=== PATIENT | male | born 1955 | race Caucasian/White ===

== ENCOUNTER 2018-11-28 21:16 | Inpatient (IN) | payer BC ==
[2018-11-28] MEDS ORDERED: NS 0.9% 1000 ML** 2,000 ML IV ONE (21:35)
[2018-11-28 21:54] LABS: ABS Eosinophils 0.1 10^3/ul (0-0.6); ABS Lymphocytes 0.9 10^3/ul (1.0-4.8); ABS Monocytes 0.6 10^3/ul (0-0.8); ABS Neutrophils 5.6 10^3/ul (1.5-7.7); Eosinophil % 1.4 %; Hematocrit 45 % (42-52); Hemoglobin 14.8 g/dL (14.0-18.0); Mean Corpuscular HGB Conc 33 g/dL (31-36); Mean Corpuscular Hemoglobin 31 pg (27-31); Mean Corpuscular Volume 94 fL (80-94); Mean Platelet Volume 6.9 fL (7.4-10.4); Nucleated Red Blood Cells % 0.1; Platelet Count 228 10^3/uL (150-450); Red Blood Count 4.73 10^6 /uL (4.18-5.48); Red Cell Distribution Width 16 % (10-15); White Blood Count 7.3 10^3/uL (3.5-10.8)
--- NOTE | 2018-11-28 21:55 | ED ---
Head Injury - HPI Summary HPI Summary: Patient is a 63 year old M brought in by ambulance the [facility] with chief complaints of a lump on back of his head since a witnessed syncopal fall backwards on to his head earlier this evening. Patient rates the pain severity 0 /10, per triage. Symptoms aggravated by nothing. Symptoms alleviated by nothing. Patient reported to be working outside most of the day. Patient reports to not have eaten dinner and was drinking beer before syncope. Patient denies any symptoms prior to syncope. Patient denies dizziness, lightheadedness , headache, neck pain, arm pain, back pain, SOB. En route, patient was hypoxic and hypotensive per EMS. Patient state he took one dose of Eliquis this afternoon (11/28/18). Patient is a smoker. - History Of Current Complaint Chief Complaint: EDSyncope Stated Complaint: ETOH PER EMS Time Seen by Provider: 11/28/18 21:33 Hx Obtained From: Patient, Other: - Nurse and EMS Mechanism Of Injury: Other - witnessed syncopal fall backwards on to his head earlier this evening Onset/Duration: Started Hours Ago, Still Present Severity Currently: None Pain Intensity: 0 Pain Scale Used: 0-10 Numeric Aggravating Factor(s): Other: - Nothing Alleviating Factor(s): Other: - Nothing Associated Signs And Symptoms: Negative - dizziness, lightheadedness, headache, neck pain, arm pain, back pain, SOB Anticoagulant Therapy: Blood Thinners - Allergies/Home Medications Allergies/Adverse Reactions: Allergies Allergy/AdvReac Type Severity Reaction Status Date / Time No Known Allergies Allergy Verified 11/28/18 21:27 Home Medications: Home Medications Apixaban [Eliquis] 5 mg PO BID 11/28/18 [History Confirmed 11/28/18] Atorvastatin* [Lipitor*] 10 mg PO QPM 11/28/18 [History Confirmed 11/28/18] Carvedilol [Coreg] 25 mg PO DAILY 11/28/18 [History Confirmed 11/28/18] Lisinopril 5 mg PO DAILY 11/28/18 [History Confirmed 11/28/18] Potassium Chlor TAB* [Klor Con ER TAB*] 20 meq PO DAILY 11/28/18 [History Confirmed 11/28/18] Torsemide 5 mg PO DAILY 11/28/18 [History Confirmed 11/28/18] guaiFENesin [Mucinex] 600 mg PO DAILY 11/28/18 [History Confirmed 11/28/18] PMH/Surg Hx/FS Hx/Imm Hx Previously Healthy: No Cardiovascular History: Reports: Hx Congestive Heart Failure Respiratory History: Reports: Hx Chronic Obstructive Pulmonary Disease (COPD) Sensory History: Reports: Hx Contacts or Glasses Opthamlomology History: Reports: Hx Contacts or Glasses - Surgical History Surgery Procedure, Year, and Place: None reported Infectious Disease History: No Infectious Disease History: Denies: Traveled Outside the [place] in Last 30 Days - Family History Known Family History: Negative: Blood Disorder - Social History Alcohol Use: Daily Hx Substance Use: No Substance Use Type: Reports: None Hx Tobacco Use: Yes Smoking Status (MU): Heavy Every Day Tobacco Smoker Review of Systems Negative: Shortness Of Breath Musculoskeletal: Negative - neck pain, arm pain, back pain Positive: Other - lump on back of his head Neurological: Negative - dizziness, lightheadedness Positive: Syncope. Negative: Headache All Other Systems Reviewed And Are Negative: Yes Physical Exam - Summary Physical Exam Summary: Appearance: Nontoxic appearance, elder male, awake, alert, no acute distress Skin: Warm, dry, no obvious rash Eyes: sclera anicteric, no conjunctival pallor ENT: mucous membranes moist Neck: Supple, nontender Respiratory: No signs of respiratory distress Cardiovascular: Appears well perfused, pulses are nml Abdomen: Soft, nontender, normal active bowel sounds present Musculoskeletal: Moving all 4 extremities without obvious discomfort Neurological: Awake and alert, mentation is normal, speech is fluent and appropriate Psychiatric: intoxicated, able to answer questions, competent to make decisions Vitals: hypotension, normal HR GCS: 15 Triage Information Reviewed: Yes Vital Signs On Initial Exam: Initial Vitals Temp Pulse Resp BP Pulse Ox 97.1 F 85 16 87/61 72 11/28/18 21:23 11/28/18 21:23 11/28/18 21:23 11/28/18 21:23 11/28/18 21:23 Vital Signs Reviewed: Yes Diagnostics - Vital Signs Vital Signs Temp Pulse Resp BP Pulse Ox 11/28/18 21:23 97.1 F 85 16 87/61 72 - Laboratory Result Diagrams: 11/29/18 05:17 11/29/18 05:17 Lab Statement: Any lab studies that have been ordered have been reviewed, and results considered in the medical decision making process. - CT Brain CT Interpretation Completed By: Radiologist Summary of CT Findings: 1. Mild small vessel ischemic changes. 2. No acute intracranial abnormality. 3. Mild right parietal soft tissue swelling. ED physician has reviewed this report. Chest/Thorax CTA CT Interpretation Completed By: Radiologist Summary of CT Findings: Per radiologist,. No evidence of pulmonary embolism, aneurysm, or dissection. No acute findings. Bilateral adrenal nodules. Further workup is recommended. ED physician has reviewed this report. - EKG 1943 Summary of EKG Findings: NSR 84, non-specific ST-T changes 2140 Cardiac Rate: NL - 84 BPM EKG Rhythm: Sinus Rhythm Summary of EKG Findings: NSR 84, non-specific ST-T changes - Additional Comments Diagnostic Additional Comments: Chest CTA, per radiologist: No evidence of pulmonary embolism, aneurysm, or dissection. No acute findings. Bilateral adrenal nodules. Further workup is recommended. ED physician has reviewed this report. Head Injury Course/Dx Course Of Treatment: Patient is a 63 year old M brought in by ambulance the [facility] with chief complaints of a lump on back of his head since a witnessed syncopal fall backwards on to his head earlier this evening. Patient denies dizziness, lightheadedness, headache, neck pain, arm pain, back pain, SOB. En route, patient was hypoxic and hypotensive per EMS. Physical exam reveals a nontoxic appearance, elder male, awake, alert, no acute distress, intoxicated, able to answer questions, competent to make decisions, hypotension, normal HR, and a GCS of 15. Test results with no significant abnormalities except for RDW 16, MPV 6.9, Absolute Lymphs 0.9, Sodium 134, Chloride 98, Glucose 134, Calcium 8.1, Total Protein 5.7, and Serum Alcohol 171. In the ED course the patient was given Iohexol 77 ml and sodium chloride 1000 mls/hr. Chest/Thorax CTA reveals, per radiologist, no evidence of pulmonary embolism, aneurysm, or dissection, no acute findings, and bilateral adrenal nodules. Brain CT reveals, per radiologist , mild small vessel ischemic changes, no acute intracranial abnormality, and mild right parietal soft tissue swelling. EKG reveals NSR 84 and non-specific ST -T changes. We discussed patient care with Dr. Anton, hospitalist, who agrees to admit patient. Patient will be admitted to the hospitalist. The patient is agreeable with this plan. - Diagnoses Provider Diagnoses: Hypotension, Hypoxemia, Alcohol intoxication - Physician Notifications Discussed Care Of Patient With: Manuel Anton Time Discussed With Above Provider: 00:35 Instructed by Provider To: Other - Dr. Anton, hospitalist, agrees to admit patient. Discharge - Sign-Out/Discharge Documenting (check all that apply): Patient Departure - admit Patient Received Moderate/Deep Sedation with Procedure: No - Discharge Plan Condition: Guarded Disposition: ADMITTED TO [facility] - Billing Disposition and Condition Condition: GUARDED Disposition: Admitted to [facility] - Attestation Statements Document Initiated by Jeannie: Yes Documenting Scribe: Liz Alicia Provider For Whom Jeannie is Documenting (Include Credential): Kamaljit Abbasi MD Scribe Attestation: Joanne Santoro Alison Kim, scribed for Kamaljit Abbasi MD on 11/30/18 at 0433. Scribe Documentation Reviewed: Yes Provider Attestation: The documentation as recorded by the Joanne lizama Alison Kim accurately reflects the service I personally performed and the decisions made by Kamaljit bonilla MD Status of Scribricardo Document: Viewed
[2018-11-28 22:11] LABS: Albumin 3.4 g/dL (3.2-5.2); Albumin/Globulin Ratio 1.5 (1-3); Calcium 8.1 mg/dL (8.6-10.3); EGFR African American 108.3 (>60); EGFR Non-African American 89.5 (>60); Globulin 2.3 g/dL (2-4); Potassium 4.5 mmol/L (3.5-5.0); Total Bilirubin 0.4 mg/dL (0.2-1.0); Total Protein 5.7 g/dL (6.4-8.9)
[2018-11-28 22:13] LABS: Troponin I 0.01 ng/mL (<0.04)
[2018-11-28] MEDS ORDERED: Iohexol 350* (CONTRAST) 500 ML MDV IV ONE (22:13)
[2018-11-28 22:58] LABS: TSH (Thyroid Stimulating Horm) 4.42 mcIU/mL (0.34-5.60)
[2018-11-29] MEDS ORDERED: Albuterol 2.5 MG/3 ML NEB.SOL* (0.083%) INH PRN (01:59)
[2018-11-29] MEDS ORDERED: Azithromycin 500 mg/250 ml NS 500 MG/250 ML BAG IVPB SCH (02:00)
[2018-11-29] MEDS: methylPREDNISolone 125 MG* 2 ML VIAL IV SCH ×2 (03:14→16:07)
[2018-11-29] MEDS: Azithromycin 500 mg/250 mL NS IVPB SCH (03:20)
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
[2018-11-29 05:39] LABS: ABS Lymphocytes 0.3 10^3/ul (1.0-4.8); ABS Monocytes 0.3 10^3/ul (0-0.8); ABS Neutrophils 8.3 10^3/ul (1.5-7.7); Eosinophil % 0.2 %; Hematocrit 47 % (42-52); Hemoglobin 15.2 g/dL (14.0-18.0); Lymphocyte % 3.9 %; Mean Corpuscular HGB Conc 32 g/dL (31-36); Mean Corpuscular Hemoglobin 30 pg (27-31); Mean Corpuscular Volume 94 fL (80-94); Mean Platelet Volume 7.1 fL (7.4-10.4); Nucleated Red Blood Cells % 0.1; Platelet Count 224 10^3/uL (150-450); Red Blood Count 5.05 10^6 /uL (4.18-5.48); Red Cell Distribution Width 15 % (10-15); White Blood Count 8.9 10^3/uL (3.5-10.8)
[2018-11-29 05:57] LABS: BUN/Creatinine Ratio 17.2 (8-20); Calcium 8.1 mg/dL (8.6-10.3); EGFR African American 152.3 (>60); EGFR Non-African American 125.9 (>60)
[2018-11-29 05:59] LABS: Troponin I 0.02 ng/mL (<0.04)
[2018-11-29 06:08] LABS: Potassium 5.4 mmol/L (3.5-5.0)
[2018-11-29] MEDS ORDERED: Patiromer POWDER* 8.4 GM PAK PO ONE (07:58)
[2018-11-29] MEDS: Apixaban* 5 MG TAB PO SCH ×2 (08:30→21:00)
[2018-11-29] MEDS: Carvedilol TAB* 25 MG PO SCH ×2 (08:30→21:00)
[2018-11-29] MEDS ORDERED: Potassium Chlor TAB* 20 MEQ TAB.ER PO SCH (09:00)
[2018-11-29] MEDS ORDERED: Perflutren Lipid Microsphere* 3 ML VIAL ONE (10:30)
--- NOTE | 2018-11-29 14:11 | PN ---
Subjective Date of Service: 11/29/18 Interval History: Mr. White is feeling fine today. He offered no complaints this morning. States he remembers the events from yesterday, but is unable to actually describe anything to me. He denies CP, SOB, N/V. Family at bedside and very concerned. Reports that he has an appointment to see a trailer rental clerk in January, but this is delaying his AICD implant. No concerns from nursing. Family History: Unchanged from Admission Social History: Unchanged from Admission Past Medical History: Unchanged from Admission Objective Active Medications: Albuterol (Ventolin 2.5 Mg/3 Ml Neb.Zahraa*) 2.5 mg INH [id number] AWAKE PRN SOB/ WHEEZING Apixaban (Eliquis*) 5 mg PO BID CHRISTIANO Atorvastatin Calcium (Lipitor*) 10 mg PO QPM CHRISTIANO Carvedilol (Coreg Tab*) 25 mg PO BID CHRISTIANO Azithromycin (Zithromax 500 Mg/250 Ml) 500 mg in 250 mls @ 250 mls/hr IVPB Q24H CHRISTIANO Methylprednisolone Sodium Succinate (Solu-Medrol 125mg *) 60 mg IV Q12H CHRISTIANO Potassium Chloride (Klor Con Er Tab*) 20 meq PO DAILY CHRISTIANO Vital Signs - 8 hr 11/29/18 11/29/18 11/29/18 06:15 06:30 06:45 Temperature Pulse Rate 80 81 79 Respiratory 21 20 20 Rate Blood Pressure 114/62 117/70 109/72 (mmHg) O2 Sat by Pulse 98 99 97 Oximetry 11/29/18 11/29/18 11/29/18 07:00 07:15 07:30 Temperature Pulse Rate 82 84 81 Respiratory 30 25 16 Rate Blood Pressure 122/79 132/88 136/85 (mmHg) O2 Sat by Pulse 96 96 96 Oximetry 11/29/18 11/29/18 11/29/18 07:45 08:00 08:01 Temperature 97.3 F Pulse Rate 83 77 80 Respiratory 21 17 23 Rate Blood Pressure 130/85 131/82 (mmHg) O2 Sat by Pulse 97 98 96 Oximetry 11/29/18 11/29/18 11/29/18 08:09 08:15 08:30 Temperature Pulse Rate 79 81 Respiratory 24 12 Rate Blood Pressure 130/82 125/82 (mmHg) O2 Sat by Pulse 98 98 98 Oximetry 11/29/18 11/29/18 11/29/18 09:00 09:30 10:00 Temperature Pulse Rate 84 76 79 Respiratory 22 21 18 Rate Blood Pressure 144/90 120/71 127/80 (mmHg) O2 Sat by Pulse 94 95 94 Oximetry 11/29/18 11/29/18 11/29/18 10:30 11:00 11:34 Temperature 97.2 F Pulse Rate 82 84 Respiratory 18 20 Rate Blood Pressure 124/98 126/91 (mmHg) O2 Sat by Pulse 91 90 Oximetry 11/29/18 11:51 Temperature 97.9 F Pulse Rate 83 Respiratory 20 Rate Blood Pressure 150/91 (mmHg) O2 Sat by Pulse 94 Oximetry Oxygen Devices in Use Now: High Flow Nasal Cannula - 10L Appearance: Middle-aged male sitting in chair in NAD Eyes: No Scleral Icterus Ears/Nose/Mouth/Throat: Mucous Membranes Moist Neck: NL Appearance and Movements; NL JVP, Trachea Midline Respiratory: Symmetrical Chest Expansion and Respiratory Effort, Clear to Auscultation Cardiovascular: NL Sounds; No Murmurs; No JVD, RRR Abdominal: NL Sounds; No Tenderness; No Distention Extremities: - - +1 pitting BLE Neurological: Alert and Oriented x 3 Lines/Tubes/Other Access: Clean, Dry and Intact Peripheral IV Nutrition: Taking PO's Result Diagrams: 11/29/18 05:17 11/29/18 05:17 Assess/Plan/Problems-Billing Assessment: Mr. White is a 63 yo M with PMH of cardiomyopathy (tachycardia-induced?), pAF, HLD, alcohol abuse, and likely COPD; who presented to the ED with c/o syncope and was found to be hypoxic in the 70s requiring Vapotherm. - Patient Problems (1) Hypoxia Code(s): R09.02 - HYPOXEMIA Comment: - Requiring Vapotherm on admission, now on high flow NC - Differentials include: COPD, asthma, interstitial lung disease - Likely does have COPD, but has not been seen by a trailer rental clerk in the past; has an appointment scheduled to establish care in January - CTA unremarkable for PE - Appreciate Pulm consult - Continue azithromycin, prednisone, albuterol (2) Syncope Code(s): R55 - SYNCOPE AND COLLAPSE Comment: - Suspect secondary to hypoxia (3) Cardiomyopathy Code(s): I42.9 - CARDIOMYOPATHY, UNSPECIFIED Comment: - Etiology unclear, but possibly tachycardia-induced - Previous EF reported at 20% and there was consideration for an AICD by primary weed controller - Echo shows EF 55-60%, no wall motion abnormalities - Continue carvedilol; resume lisinopril and torsemide (4) Alcohol abuse Code(s): F10.10 - ALCOHOL ABUSE, UNCOMPLICATED Comment: - Social work consult placed - WA protocol with lorazepam - Start thiamine, folic acid, multivitamin (5) Paroxysmal atrial fibrillation Code(s): I48.0 - PAROXYSMAL ATRIAL FIBRILLATION Comment: - EKG shows NSR, rate controlled - Continue carvedilol, Eliquis (6) Hyperlipidemia Code(s): E78.5 - HYPERLIPIDEMIA, UNSPECIFIED Comment: - Continue atorvastatin (7) DVT prophylaxis Code(s): Z29.9 - ENCOUNTER FOR PROPHYLACTIC MEASURES, UNSPECIFIED Comment: - Eliquis (8) Full code status Code(s): Z78.9 - OTHER SPECIFIED HEALTH STATUS Comment: Status and Disposition: Inpatient. Anticipate d/c home when medically stable. Attending: Desirae Santos
--- NOTE | 2018-11-29 14:48 | ECHO ---
*[facility]* [place] [address] Fax #: [phone] Transthoracic Echocardiogram Patient: Lexx White : 1955 Study Date: 11/29/2018 Age: 63 Gender: M HR: 80 bpm Height: 69 in /175.3 cm BSA: 2.07 m^2 Weight: 199.6 lb /90.7 kg BMI: 29.5 kg/m^2 *Mechanotherapist: * Ricarda Petit [facility] *Referring Physician: * Manuel Anton *Reading Physician: * Re Scott MD Indications: Cardiomyopathy. History: Atrial fibrillation. PMH: Cardiomyopathy. Risk factors: ETOH. Dyslipidemia. Conclusions Summary: 1. Left ventricle: The cavity size is mildly reduced. Wall thickness is mildly increased. Systolic function is normal. The estimated ejection fraction is 55-60%. 2. Right ventricle: The cavity size is moderately dilated. Systolic function is moderately to severely reduced. 3. Tricuspid valve: There is mild regurgitation. 4. Pulmonary arteries: Systolic pressure is moderately to severely increased. The peak pressure during systole by Doppler is 53.0 mm Hg. 5. No prior echocardiogram to compare. Study data: Transthoracic echocardiogram. Procedure: Transthoracic echocardiography was performed. Image quality was suboptimal. The study was technically limited due to poor acoustic window availability. Intravenous Definity , 3 mlswas administered. Complete 2D, spectral Doppler, and color flow Doppler. Location: ICU Patient status: Inpatient. Patient room number: 9. Rhythm: Normal sinus rhythm. Findings Left ventricle: The cavity size is mildly reduced. Wall thickness is mildly increased. Systolic function is normal. The estimated ejection fraction is 55-60%. Wall motion is normal; there are no regional wall motion abnormalities. Doppler parameters are consistent with abnormal left ventricular relaxation (grade 1 diastolic dysfunction). Right ventricle: The cavity size is moderately dilated. Systolic function is moderately to severely reduced. Systolic pressure is moderately to severely increased. Ventricular septum: There is septal flattening of the interventricular septum consistent with RV volume or pressure overload. Left atrium: The atrium is normal in size. Right atrium: The atrium is moderately dilated. Mitral valve: The annulus is mildly calcified. The leaflets are normal thickness. There is no evidence of stenosis. There is no significant regurgitation. Aortic valve: Not well visualized. There is no evidence of thickening. There is no evidence of stenosis. There is no significant regurgitation. Tricuspid valve: The leaflets are normal thickness. There is no evidence of stenosis. There is mild regurgitation. Pulmonic valve: Not well visualized. There is no significant regurgitation. Aorta: Aortic root: The aortic root is appears normal. Ascending aorta: The ascending aorta is poorly visualized. Aortic arch: The aortic arch is poorly visualized. Pulmonary arteries: Not well visualized. Systolic pressure is moderately to severely increased. Systemic veins: Inferior vena cava: The vessel is dilated. The respirophasic diameter changes are blunted (< 50%). Measurements Left ventricle Value Ref Right atrium Value Ref RUBY, LAX (L) 3.1 cm 4.2 - 5.8 SI dim, ES (H) 5.8 cm 3.4 - 5.3 ESD, LAX 2.5 cm 2.5 - 4.0 ML dim, ES, A4C (H) 4.5 cm 2.6 - 4.4 FS, LAX (L) 20 % 25 - 43 Estimated RAP 15 mm Hg --------- PW, ED, LAX (H) 1.1 cm 0.6 - 1.0 EF (L) 42 % 52 - 72 Aortic valve Value Ref E', lat mayelin, TDI (L) 8.8 cm/sec >=10.0 Mayelin diam, ED 2.0 cm --- ------ E/e', lat mayelin, 7 Peak v, S 1.13 m/sec ------ --- TDI VTI, S 19.5 cm --------- E', med mayelin, TDI (L) 5.8 cm/sec >=7.0 Mean grad, S 2.0 mm Hg --- ------ E/e', med mayelin, 11 Peak grad, S 5.0 mm Hg ------ --- TDI E', avg, TDI 7.3 cm/sec Mitral valve Value Ref E/e', avg, TDI 9 <=14 Peak E 0.65 m/sec --- ------ Peak A 0.85 m/sec --------- LVOT Value Ref Decel time 92 ms --------- Peak fe, S 0.75 m/sec Peak E/A ratio 0.8 --------- Mean grad, S 1 mm Hg Tricuspid valve Value Ref Ventricular septum Value Ref TR peak v (H) 3.1 m/sec <=2.8 IVS, ED (H) 1.2 cm 0.6 - 1.0 Peak RV-RA grad, S 38 mm Hg --------- Right ventricle Value Ref Aortic root Value Ref RUBY, LAX 4.5 cm Root diam 3.2 cm <4.2 RUBY minor ax, A4C (H) 4.2 cm 1.9 - 3.5 mid Pulmonary artery Value Ref Pressure, S 53 mm Hg Pressure, S 53.0 mm Hg --------- Left atrium Value Ref Inferior vena cava Value Ref AP dim, ES 3.70 cm 3.00 - Diam 3.3 cm --------- 4.00 ML dim, A4C 3.4 cm SI dim, A4C 5.2 cm Vol/bsa, ES, 1-p 18 ml/m^2 12 - 37 A4C Legend: (L) and (H) yarelis values outside specified reference range. Prepared and electronically signed by Re Scott MD 11/29/2018 14:47
[2018-11-29] MEDS ORDERED: LORazepam TAB(*) 1 MG PO SCH (15:00)
--- NOTE | 2018-11-29 17:38 | CONS ---
PULMONARY CONSULTATION REPORT: DATE OF CONSULT: 11/29/18 CONSULTATION REQUESTED BY: Judy Ballard NP. REASON FOR CONSULT: Evaluation of hypoxemic respiratory failure. 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 The patient has not been seeing a physician for many years until recently when he had skin cancer and was found to be in atrial fibrillation. The patient subsequently was found to have cardiomyopathy with severe systolic CHF and low ejection fraction and was awaiting placement of AICD. Given his significant smoking history, he was to have pulmonology consultation, which was pending. He came in after a syncopal episode. The patient was having a few drinks at a restaurant, was crossing the road, fell, had lost consciousness. The patient is a poor historian, not able to provide much information. The patient's daughter and other family members at bedside were providing most of the information. The patient is being watched for alcohol withdrawal. He has a history of significant alcohol intake and his levels were elevated on admission. The patient was also noted to be significantly hypoxemic requiring O2 supplementation at 5 L per minute. The patient has been alert and oriented. He has complained of shortness of breath with minimal exertion that is progressively getting worse recently. The patient also reports cough productive of clear phlegm. The patient denies history of recurrent bronchitis. The patient also reports history of snoring, gasping arousals, disruptive sleep, and daytime fatigue. He had cardiac catheterization in July 2018, which was negative for obstructive coronary disease. He also was noted to have dilated cardiomyopathy and was presumed to be at risk for ventricular tachycardia and AICD was planned at that point. He was never formally diagnosed with COPD. He has never been on any inhalers. He has been on cardiac medications that were started recently. The patient reports smoking a pack or more per day, recently trying to cut down to half a pack and is interested in quitting smoking. He has received Chantix; however, has not started using it. PAST MEDICAL HISTORY: 1. Cardiomyopathy. 2. Tachycardia-induced cardiomyopathy. 3. Paroxysmal atrial fibrillation. 4. Dyslipidemia. 5. EtOH abuse. 6. Significant tobacco usage. PAST SURGICAL HISTORY: Skin cancer resection. MEDICATIONS: 1. Potassium chloride. 2. Mucinex. 3. Torsemide. 4. Coreg. 5. Lisinopril. 6. Eliquis. 7. Lipitor. ALLERGIES: No known drug allergies. FAMILY HISTORY: Father of lung disease at age 35, possibly lung cancer or asbestosis. Mother of heart disease at older age and peripheral vascular disease. Sister has thyroid nodules, noncancerous. 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 Has been smoking half a pack recently, was smoking about a pack or more in the past. Drinks alcohol about 3 drinks per day. No drug abuse. REVIEW OF SYSTEMS: Denies fevers, chills, night sweats, loss of weight or appetite. Denies chest pain or palpitations. Has lower extremity swelling. All other review of systems were negative. PHYSICAL EXAM: The patient is in bed, in no apparent distress, appears to be with periods of confusion. Vital Signs: Temperature 97.8, pulse 83 beats per minute, respiratory rate 20 per minute, O2 sat 97% on 5 L, blood pressure 129/ 78. HEENT: Pupils equal, reactive to light. Mucous membranes moist. Lungs: Diminished air entry bilaterally. No wheeze. Cardiovascular: S1, S2 present. Regular. Abdomen: Soft, nontender, nondistended. Bowel sounds present. Extremities: Normal range of motion. Edema present. Neuro: Alert, awake, oriented x3. DIAGNOSTIC STUDIES/LAB DATA: WBC count 8.9, hemoglobin 15.2, hematocrit 47, platelet count 224. Sodium 133, potassium 5.4, chloride 99, bicarb 30, BUN 11, creatinine 0.64. Troponins x3 negative. Alcohol level 171 on admission. CTA on admission was personally reviewed by me - evidence of mild prominence of interstitium and mild bronchiectasis at bases with evidence of mild hyperinflation. No emphysematous bullae noted. Echocardiogram showed evidence of enlarged right ventricle with evidence of moderate pulmonary hypertension. IMPRESSION AND RECOMMENDATIONS: 63-year-old male with significant smoking history, admitted with syncopal episode. The patient with evidence of hypoxemia. The patient with dilated pulmonary artery on CT scan, also with evidence of pulmonary hypertension. He has lower extremity edema concerning for cor pulmonale. Suspect he has undiagnosed chronic obstructive pulmonary disease that has not been treated and resulted in chronic hypoxemia. He also appeared to be at risk for obstructive sleep apnea. He might have had chronic pulmonary hypertension and chronic hypoxemia resulting in cor pulmonale. Hypoxemia secondary to underlying pulmonary disease. The patient is currently on nebulizers, also was started on azithromycin empirically. Would recommend long acting bronchodilators upon discharge. The patient is also on Solu-Medrol, can start tapering as he does not have significant wheezing on auscultation. He is on cardiac medications including beta-kwabena. He is also on torsemide to help with lower extremity swelling. The patient is currently requiring 5 L O2. Will recommend obtaining blood gas in the screen roller to evaluate for chronic hypercapnia. The patient will probably need oxygen upon discharge. Out of bed to chair and ambulate as tolerated. Incentive spirometer encouraged. Thank you for allowing me to participate in the care of your patient. Will follow up with you. [id number]/CPS #: [id number] ABE
[2018-11-29] MEDS: Atorvastatin* 10 MG TAB PO SCH (17:42)
[2018-11-29 19:34] LABS: Urine Appearance Clear; Urine Bacteria 1+ (Absent); Urine Bilirubin Negative (Negative); Urine Blood Negative (Negative); Urine Color Yellow; Urine Glucose Negative (Negative); Urine Ketones Negative (Negative); Urine Nitrite Positive (Negative); Urine Protein Negative (Negative); Urine Red Blood Cell 2+(6-10/hpf) (Absent); Urine Specific Gravity 1.014 (1.010-1.030); Urine Squamous Epithelial Cell Present (Absent); Urine Urobilinogen Negative (Negative); Urine White Blood Cell 3+(>20/hpf) (Absent)
[2018-11-30] MEDS: methylPREDNISolone 125 MG* 2 ML VIAL IV SCH ×2 (03:56→15:32)
[2018-11-30] MEDS: Azithromycin 500 mg/250 mL NS IVPB SCH (03:56)
[2018-11-30 06:12] LABS: BUN/Creatinine Ratio 20.6 (8-20); Blood Urea Nitrogen 13 mg/dL (6-24); CO2 Carbon Dioxide 40 mmol/L (22-32); Chloride 95 mmol/L (101-111); EGFR African American 155.1 (>60); EGFR Non-African American 128.2 (>60); Glucose 175 mg/dL (70-100); Magnesium 1.6 mg/dL (1.9-2.7); Sodium 135 mmol/L (135-145)
[2018-11-30 06:13] LABS: Potassium 5.3 mmol/L (3.5-5.0)
[2018-11-30] MEDS: Thiamine TAB* 100 MG TAB PO SCH (08:52)
[2018-11-30] MEDS: Multivitamins/Minerals TAB PO SCH (08:52)
[2018-11-30] MEDS: Torsemide TAB 10 MG PO SCH (08:52)
[2018-11-30] MEDS: Folic Acid TAB* 1 MG PO SCH (08:52)
[2018-11-30] MEDS: Apixaban* 5 MG TAB PO SCH ×2 (08:52→22:02)
[2018-11-30] MEDS: Carvedilol TAB* 25 MG PO SCH ×2 (08:52→22:02)
[2018-11-30] MEDS ORDERED: Lisinopril TAB* 5 MG PO SCH (09:00)
[2018-11-30] MEDS ORDERED: Spiriva Inhaler DEVICE* 1 EACH DEVICE INH SCH (14:00)
[2018-11-30] MEDS: Tiotropium CAP.INH* CAP.INH/18 MCG (USE ORDER SET !) INH SCH (14:10)
--- NOTE | 2018-11-30 16:20 | PN ---
Progress Note - Progress Note Date of Service: 11/30/18 - Pulm f/u note Note: Pt seen and examined at bedside. Pt was transferred to ICU for BiPAP given acute hypercapnic resp failure and AMS. Pt appeared comfortable on BiPAP. Pt reprots improvement in mental status. SOB is improved, no cough Active Medications Generic Name Dose Route Start Last Admin Trade Name Freq PRN Reason Stop Dose Admin Albuterol 2.5 mg 11/29/18 01:59 Ventolin 2.5 Mg/3 Ml Neb.Zahraa* INH [id number] AWAKE PRN SOB/WHEEZING Apixaban 5 mg 11/29/18 09:00 11/30/18 08:52 Eliquis* PO 5 mg BID [facility] Administration Atorvastatin Calcium 10 mg 11/29/18 18:00 11/29/18 17:42 Lipitor* PO 10 mg QPM [facility] Administration Carvedilol 25 mg 11/29/18 09:00 11/30/18 08:52 Coreg Tab* PO 25 mg BID [facility]O Administration Device 1 each 11/30/18 14:00 Tiotropium Inhaler Device* INH .USE w/ SPIRIVA CAPS [facility] Folic Acid 1 mg 11/30/18 09:00 11/30/18 08:52 Folvite Tab* PO 1 mg DAILY [facility] Administration Azithromycin 500 mg in 250 mls @ 250 mls/hr 11/29/18 03:30 11/30/18 03:56 Zithromax 500 Mg/250 Ml IVPB 250 mls/hr Q24H [facility] Administration Lisinopril 5 mg 11/30/18 09:00 11/30/18 08:52 Prinivil Tab* PO 5 mg DAILY [facility] Administration Lorazepam 0 - 6 mg 11/29/18 15:00 Ativan Tab(*) PO .PER [facility] PROTOCOL [facility] Protocol Methylprednisolone Sodium Succinate 40 mg 11/30/18 14:00 11/30/18 15:32 Solu-Medrol 125mg * IV 40 mg Q24H [facility] Administration Mometasone Furoate/Formoterol Fumar 2 puff 11/30/18 21:00 Dulera 200/5 Mdi* INH BID [facility] Multivitamins/Minerals 1 tab 11/30/18 09:00 11/30/18 08:52 Theragran/Minerals Tab* PO 1 tab DAILY [facility] Administration Thiamine HCl 100 mg 11/30/18 09:00 11/30/18 08:52 Vitamin B-1 Tab* PO 100 mg DAILY [facility] Administration Tiotropium [place] 1 cap 11/30/18 14:00 11/30/18 14:10 Spiriva Cap.Inh* INH Not Given DAILY [facility]O Torsemide 5 mg 11/30/18 09:00 11/30/18 08:52 Torsemide PO 5 mg DAILY [facility] Administration Vital Signs Temp Pulse Resp BP Pulse Ox 97.0 F 108 18 91/52 94 11/30/18 11:47 11/30/18 11:48 11/30/18 11:48 11/30/18 11:47 11/30/18 11:48 Laboratory Results - last 24 hr 11/29/18 11/30/18 11/30/18 19:17 01:07 05:39 Patient Temperature Not Reportable ABG pH ABG pH (Temp Correct) ABG pCO2 ABG pCO2 (Temp Corrct ABG pO2 ABG pO2 (Temp Correct ABG HCO3 ABG O2 Saturation ABG Base Excess Respiration Rate Not Reportable O2 Delivery Device Ventilator Type Not Reportable Vent Mode Not Reportable FiO2 Inspiratory Time Not Reportable PEEP Not Reportable Pressure Support Not Reportable Pressure Control Not Reportable EPAP IPAP BiPAP Not Reportable Sodium 135 Potassium 5.3 H Chloride 95 L Carbon Dioxide 40 H Anion Gap Not Reportable BUN 13 Creatinine 0.63 L Est GFR ( Amer) 155.1 Est GFR (Non-Af Amer) 128.2 BUN/Creatinine Ratio 20.6 H Glucose 175 H Calcium 9.0 Magnesium 1.6 L Urine Color Yellow Urine Appearance Clear Urine pH 5.0 Ur Specific [place] 1.014 Urine Protein Negative Urine Ketones Negative Urine Blood Negative Urine Nitrate Positive A Urine Bilirubin Negative Urine Urobilinogen Negative Ur Leukocyte Esterase 2+ A Urine WBC (Auto) 3+(>20/hpf) A Urine RBC (Auto) 2+(6-10/hpf) A Ur Squamous Epith Cells Present A Urine Bacteria 1+ A Hyaline Casts Present A Urine Glucose Negative Urine Ascorbic Acid * A Lyme Total Antibody 11/30/18 11/30/18 11/30/18 05:39 09:15 13:07 Patient Temperature Not Reportable ABG pH 7.21 L 7.25 L ABG pH (Temp Correct) Not Reportable Not Reportable ABG pCO2 95 H* 96 H* ABG pCO2 (Temp Corrct Not Reportable Not Reportable ABG pO2 101 H 75 L ABG pO2 (Temp Correct Not Reportable Not Reportable ABG HCO3 29.9 33.2 H ABG O2 Saturation 98.9 H 97.2 ABG Base Excess 6.5 H 10.7 H Respiration Rate Not Reportable O2 Delivery Device 3.5 lpm nc Bipap Ventilator Type Not Reportable Vent Mode Not Reportable FiO2 Not Reportable 40 Inspiratory Time Not Reportable PEEP Not Reportable Pressure Support Not Reportable Pressure Control Not Reportable EPAP Not Reportable 6 IPAP Not Reportable 12 BiPAP Not Reportable Sodium Potassium Chloride Carbon Dioxide Anion Gap BUN Creatinine Est GFR ( Amer) Est GFR (Non-Af Amer) BUN/Creatinine Ratio Glucose Calcium Magnesium Urine Color Urine Appearance Urine pH Ur Specific [place] Urine Protein Urine Ketones Urine Blood Urine Nitrate Urine Bilirubin Urine Urobilinogen Ur Leukocyte Esterase Urine WBC (Auto) Urine RBC (Auto) Ur Squamous Epith Cells Urine Bacteria Hyaline Casts Urine Glucose Urine Ascorbic Acid Lyme Total Antibody Negative O/E: Pt in NAD HEENT: PERRLA, BiPAP mask in place Lungs: Diminished air entry b/l, no wheeze CVS: S1, S2+ Abd: Obese, BS+ Ext: Edema+ Neuro: No focal deficits I/R: 63 yo M with signficant smoking history, recently dx with cardiomyopathy ( tachycardia-induced?), pAF, HLD, alcohol abuse, and ? COPD; who presented to the ED with c/o syncope and was found to be hypoxic in the 70s requiring Vapotherm. Pt with persistent hypoxia, had ABG today and was noted to have acute hypercapnic resp failure with resp acidosis Pt was transferred to ICU for rescue BiPAP Pt tolerating well Will give break from NIPPV for few hrs and will place pt on BiPAP over night Will obtain ABG in am c/w bronchodilators, steroids D/w RT
--- NOTE | 2018-11-30 17:27 | PN ---
Subjective Date of Service: 11/30/18 Interval History: oriented but sleeping alot per his sometimes wheezes. 40 pack years, current smoker ABG PH 7.21, CO2 95 PCP had been trying to arrange PFTS. updated daughter Vero on phone who is asking about Lyme testing ( a lot of exposure) Family History: Unchanged from Admission Social History: Unchanged from Admission Past Medical History: Unchanged from Admission Objective Active Medications: Albuterol (Ventolin 2.5 Mg/3 Ml Neb.Zahraa*) 2.5 mg INH [id number] AWAKE PRN PRN Reason: SOB/WHEEZING Apixaban (Eliquis*) 5 mg PO BID [facility] Last Admin: 11/30/18 08:52 Dose: 5 mg Atorvastatin Calcium (Lipitor*) 10 mg PO QPM [facility] Last Admin: 11/29/18 17:42 Dose: 10 mg Carvedilol (Coreg Tab*) 25 mg PO BID [facility] Last Admin: 11/30/18 08:52 Dose: 25 mg Device (Tiotropium Inhaler Device*) 1 each INH .USE w/ SPIRIVA CAPS [facility] Folic Acid (Folvite Tab*) 1 mg PO DAILY [facility] Last Admin: 11/30/18 08:52 Dose: 1 mg Azithromycin (Zithromax 500 Mg/250 Ml) 500 mg in 250 mls @ 250 mls/hr IVPB Q24H [facility] Last Admin: 11/30/18 03:56 Dose: 250 mls/hr Lisinopril (Prinivil Tab*) 5 mg PO DAILY [facility] Last Admin: 11/30/18 08:52 Dose: 5 mg Lorazepam (Ativan Tab(*)) 0 - 6 mg PO .PER [facility] PROTOCOL [facility]; Protocol Methylprednisolone Sodium Succinate (Solu-Medrol 125mg *) 40 mg IV Q24H [facility] Last Admin: 11/30/18 15:32 Dose: 40 mg Mometasone Furoate/Formoterol Fumar (Dulera 200/5 Mdi*) 2 puff INH BID [facility] Multivitamins/Minerals (Theragran/Minerals Tab*) 1 tab PO DAILY [facility] Last Admin: 11/30/18 08:52 Dose: 1 tab Thiamine HCl (Vitamin B-1 Tab*) 100 mg PO DAILY [facility] Last Admin: 11/30/18 08:52 Dose: 100 mg Tiotropium [place] (Spiriva Cap.Inh*) 1 cap INH DAILY [facility] Last Admin: 11/30/18 14:10 Dose: Not Given Torsemide (Torsemide) 5 mg PO DAILY [facility] Last Admin: 11/30/18 08:52 Dose: 5 mg Vital Signs - 8 hr 11/30/18 11/30/18 11/30/18 10:17 11:41 11:45 Temperature 98.2 F Pulse Rate 81 63 63 Respiratory 20 19 15 Rate Blood Pressure 99/58 89/54 82/57 (mmHg) O2 Sat by Pulse 96 95 95 Oximetry 11/30/18 11/30/18 11/30/18 11:47 11:48 11:50 Temperature 97.0 F Pulse Rate 61 108 61 Respiratory 18 18 17 Rate Blood Pressure 91/52 81/50 (mmHg) O2 Sat by Pulse 94 94 94 Oximetry 11/30/18 11/30/18 11/30/18 11:52 12:00 12:15 Temperature Pulse Rate 60 60 59 Respiratory 19 14 19 Rate Blood Pressure 91/52 92/55 104/60 (mmHg) O2 Sat by Pulse 94 94 94 Oximetry 11/30/18 11/30/18 11/30/18 12:30 12:46 13:00 Temperature Pulse Rate 66 59 71 Respiratory 16 18 34 Rate Blood Pressure 100/63 104/64 (mmHg) O2 Sat by Pulse 91 96 96 Oximetry 11/30/18 11/30/18 11/30/18 13:10 13:15 13:30 Temperature Pulse Rate 60 58 58 Respiratory 20 16 14 Rate Blood Pressure 90/59 88/57 87/60 (mmHg) O2 Sat by Pulse 92 91 93 Oximetry 11/30/18 11/30/18 11/30/18 13:45 14:00 14:15 Temperature Pulse Rate 60 61 60 Respiratory 15 15 20 Rate Blood Pressure 98/62 94/59 100/59 (mmHg) O2 Sat by Pulse 93 96 95 Oximetry 11/30/18 11/30/18 11/30/18 14:30 14:45 15:00 Temperature Pulse Rate 70 77 79 Respiratory 17 20 14 Rate Blood Pressure 97/73 103/69 105/65 (mmHg) O2 Sat by Pulse 98 98 97 Oximetry 11/30/18 11/30/18 11/30/18 15:15 15:30 15:45 Temperature Pulse Rate 76 75 76 Respiratory 23 16 21 Rate Blood Pressure 105/73 103/74 113/74 (mmHg) O2 Sat by Pulse 99 98 96 Oximetry 11/30/18 11/30/18 11/30/18 16:00 16:16 16:26 Temperature 97.3 F Pulse Rate 76 75 72 Respiratory 24 18 16 Rate Blood Pressure 114/73 115/75 (mmHg) O2 Sat by Pulse 97 96 96 Oximetry Oxygen Devices in Use Now: BiPAP Appearance: NAD, Eyes: No Scleral Icterus Ears/Nose/Mouth/Throat: NL Teeth, Lips, Gums Neck: NL Appearance and Movements; NL JVP Respiratory: - - distant breath sounds, no rhonchi. occasional upper airway wheeze Cardiovascular: NL Sounds; No Murmurs; No JVD, RRR Abdominal: NL Sounds; No Tenderness; No Distention Extremities: No Edema Skin: No Rash or Ulcers Neurological: Alert and Oriented x 3 Nutrition: Taking PO's Result Diagrams: 11/29/18 05:17 11/30/18 05:39 Additional Lab and Data: Laboratory Results - last 24 hr 11/30/18 11/30/18 11/30/18 01:07 05:39 05:39 Patient Temperature Not Reportable ABG pH ABG pH (Temp Correct) ABG pCO2 ABG pCO2 (Temp Corrct ABG pO2 ABG pO2 (Temp Correct ABG HCO3 ABG O2 Saturation ABG Base Excess Respiration Rate Not Reportable O2 Delivery Device Ventilator Type Not Reportable Vent Mode Not Reportable FiO2 Inspiratory Time Not Reportable PEEP Not Reportable Pressure Support Not Reportable Pressure Control Not Reportable EPAP IPAP BiPAP Not Reportable Sodium 135 Potassium 5.3 H Chloride 95 L Carbon Dioxide 40 H Anion Gap Not Reportable BUN 13 Creatinine 0.63 L Est GFR ( Amer) 155.1 Est GFR (Non-Af Amer) 128.2 BUN/Creatinine Ratio 20.6 H Glucose 175 H Calcium 9.0 Magnesium 1.6 L Lyme Total Antibody Negative 11/30/18 11/30/18 09:15 13:07 Patient Temperature Not Reportable ABG pH 7.21 L 7.25 L ABG pH (Temp Correct) Not Reportable Not Reportable ABG pCO2 95 H* 96 H* ABG pCO2 (Temp Corrct Not Reportable Not Reportable ABG pO2 101 H 75 L ABG pO2 (Temp Correct Not Reportable Not Reportable ABG HCO3 29.9 33.2 H ABG O2 Saturation 98.9 H 97.2 ABG Base Excess 6.5 H 10.7 H Respiration Rate Not Reportable O2 Delivery Device 3.5 lpm nc Bipap Ventilator Type Not Reportable Vent Mode Not Reportable FiO2 Not Reportable 40 Inspiratory Time Not Reportable PEEP Not Reportable Pressure Support Not Reportable Pressure Control Not Reportable EPAP Not Reportable 6 IPAP Not Reportable 12 BiPAP Not Reportable Sodium Potassium Chloride Carbon Dioxide Anion Gap BUN Creatinine Est GFR ( Amer) Est GFR (Non-Af Amer) BUN/Creatinine Ratio Glucose Calcium Magnesium Lyme Total Antibody Microbiology and Other Data: Microbiology 11/30/18 11:34 Nasal Screen MRSA (PCR) - Final Nasal Mrsa Not Detected 11/29/18 02:48 Nasal Screen MRSA (PCR) - Final Nasal Mrsa Not Detected Assess/Plan/Problems-Billing Assessment: Mr. White is a 63 yo M with PMH of cardiomyopathy (tachycardia-induced?), pAF, HLD, alcohol abuse, and likely COPD; who presented to the ED with c/o syncope and was found to be hypoxic in the 70s. Returned to ICU for rescue BIPAP for hypercapnic respiratory failure. - Patient Problems (1) Hypercapnic respiratory failure Current Visit: Yes Status: Acute Code(s): J96.92 - RESPIRATORY FAILURE, UNSPECIFIED WITH HYPERCAPNIA SNOMED Code(s): 397553281 Comment: likely undiagnosed COPD, needs PFTs as outpatient needing rescue Bipap. appreciate Pulm recs. ECHO with evidence of right heart failure. duo nebs, start dulera and spiriva. reduce solumedrol from 60mg q12 to 40mg daily. 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 Impmroved to 30% - Echo this admission shows EF 55-60%, no wall motion abnormalities - Continue carvedilol; lisinopril and torsemide (4) DVT prophylaxis Current Visit: Yes Status: Acute Code(s): Z29.9 - ENCOUNTER FOR PROPHYLACTIC MEASURES, UNSPECIFIED SNOMED Code(s): 085918872 Comment: - Eliquis (5) Full code status Current Visit: Yes Status: Acute Code(s): Z78.9 - OTHER SPECIFIED HEALTH STATUS SNOMED Code(s): 146859420 Comment: (6) Hyperlipidemia Current Visit: Yes Status: Acute Code(s): E78.5 - HYPERLIPIDEMIA, UNSPECIFIED SNOMED Code(s): 72440908 Comment: - Continue atorvastatin (7) Hypoxia Current Visit: Yes Status: Acute Code(s): R09.02 - HYPOXEMIA SNOMED Code(s ): 634029958 Comment: - 2/2 COPD - s/p Vapotherm on admission - CTA unremarkable for PE - Appreciate Pulm consult (8) Paroxysmal atrial fibrillation Current Visit: Yes Status: Acute Code(s): I48.0 - PAROXYSMAL ATRIAL FIBRILLATION SNOMED Code(s): 131322089 Comment: - EKG shows NSR, rate controlled - Continue carvedilol, Eliquis (9) Syncope Current Visit: Yes Status: Acute Code(s): R55 - SYNCOPE AND COLLAPSE SNOMED Code(s): 334797661 Comment: - Suspect secondary to hypoxia Status and Disposition: Inpatient. ICU.
[2018-11-30] MEDS: Mometasone/Formoter 200/5 MDI INH SCH (19:21)
[2018-11-30] MEDS: Atorvastatin* 10 MG TAB PO SCH (19:50)
[2018-12-01] MEDS: Azithromycin 500 mg/250 mL NS IVPB SCH (04:40)
[2018-12-01] MEDS: Tiotropium CAP.INH* CAP.INH/18 MCG (USE ORDER SET !) INH SCH (07:24)
[2018-12-01] MEDS: Mometasone/Formoter 200/5 MDI INH SCH (07:24)
[2018-12-01 07:51] LABS: BUN/Creatinine Ratio 27.3 (8-20); Blood Urea Nitrogen 15 mg/dL (6-24); Calcium 8.7 mg/dL (8.6-10.3); Chloride 95 mmol/L (101-111); EGFR African American 181.5 (>60); Glucose 128 mg/dL (70-100); Sodium 137 mmol/L (135-145)
[2018-12-01 07:59] LABS: CO2 Carbon Dioxide 44 mmol/L (22-32)
[2018-12-01] MEDS: Folic Acid TAB* 1 MG PO SCH (09:01)
[2018-12-01] MEDS: Thiamine TAB* 100 MG TAB PO SCH (09:01)
[2018-12-01] MEDS: Lisinopril TAB* 5 MG PO SCH (09:01)
[2018-12-01] MEDS: Apixaban* 5 MG TAB PO SCH ×2 (09:01→21:01)
[2018-12-01] MEDS: Multivitamins/Minerals TAB PO SCH (09:01)
[2018-12-01] MEDS ORDERED: Magnesium Sulfate 2 GM IV* 2 GM/50 ML BAG IVPB ONE (09:43)
[2018-12-01] MEDS ORDERED: LORazepam TAB(*) 1 MG PO SCH (09:47)
--- NOTE | 2018-12-01 09:52 | PN ---
Subjective Interval History: Took Bipap off at 5:30 pH 7.39 pCO2 76 bicarb 44 hungry, denies chest pain, abdominal pain, f/c/n/v. details of yesterday fuzzy. Family History: Unchanged from Admission Social History: Unchanged from Admission Past Medical History: Unchanged from Admission Objective Active Medications: Acetazolamide (Diamox Tab*) [address] [facility] Albuterol (Ventolin 2.5 Mg/3 Ml Neb.Zahraa*) 2.5 mg INH [id number] AWAKE PRN PRN Reason: SOB/WHEEZING Apixaban (Eliquis*) [address] [facility] Last Admin: 12/01/18 09:01 Dose: 5 mg Atorvastatin Calcium (Lipitor*) [address] [facility] Last Admin: 11/30/18 19:50 Dose: 10 mg Carvedilol (Coreg Tab*) [address] [facility] Last Admin: 11/30/18 22:02 Dose: 25 mg Device (Tiotropium Inhaler Device*) 1 each INH .USE w/ SPIRIVA CAPS [facility] Folic Acid (Folvite Tab*) [address] [facility] Last Admin: 12/01/18 09:01 Dose: 1 mg Azithromycin (Zithromax 500 Mg/250 Ml) 500 mg in 250 mls @ 250 mls/hr IVPB Q24H [facility] Last Admin: 12/01/18 04:40 Dose: 250 mls/hr Magnesium Sulfate (Magnesium Sulfate 2 Gm Iv*) 2 gm in 50 mls @ 50 mls/hr IVPB ONCE ONE Stop: 12/01/18 10:42 Lisinopril (Prinivil Tab*) 2.[address] [facility] Last Admin: 12/01/18 09:01 Dose: 2.5 mg Methylprednisolone Sodium Succinate (Solu-Medrol 125mg *) [address] [facility] Last Admin: 11/30/18 15:32 Dose: 40 mg Mometasone Furoate/Formoterol Fumar (Dulera 200/5 Mdi*) [address] [facility] Last Admin: 12/01/18 07:24 Dose: 2 puff Multivitamins/Minerals (Theragran/Minerals Tab*) [address] [facility] Last Admin: 12/01/18 09:01 Dose: 1 tab Thiamine HCl (Vitamin B-1 Tab*) [address] [facility] Last Admin: 12/01/18 09:01 Dose: 100 mg Tiotropium [place] (Spiriva Cap.Inh*) [address] [facility] Last Admin: 12/01/18 07:24 Dose: 1 cap Torsemide (Torsemide) [address] [facility] Last Admin: 11/30/18 08:52 Dose: 5 mg Vital Signs - 8 hr 12/01/18 12/01/18 12/01/18 02:00 03:00 04:00 Temperature 97.8 F Pulse Rate 77 69 80 Respiratory 13 15 16 Rate Blood Pressure 132/84 128/80 132/83 (mmHg) O2 Sat by Pulse 97 95 96 Oximetry 12/01/18 12/01/18 12/01/18 05:00 05:01 06:00 Temperature Pulse Rate 79 81 74 Respiratory 19 14 14 Rate Blood Pressure 145/85 122/83 (mmHg) O2 Sat by Pulse 99 99 89 Oximetry 12/01/18 07:30 Temperature Pulse Rate 65 Respiratory 18 Rate Blood Pressure (mmHg) O2 Sat by Pulse 93 Oximetry Oxygen Devices in Use Now: Nasal Cannula Appearance: NAD, eating breakfast in chair. Neck: NL Appearance and Movements; NL JVP Respiratory: - - slight expiratory wheeze, moderately reduced air exchange, no rales or rhonchi. Cardiovascular: NL Sounds; No Murmurs; No JVD, RRR Abdominal: - - soft, distended, non tender. Extremities: - - 1+ pitting edema. Skin: No Rash or Ulcers Neurological: Alert and Oriented x 3 Nutrition: Taking PO's Result Diagrams: 11/29/18 05:17 12/01/18 07:25 Additional Lab and Data: Laboratory Results - last 24 hr 11/30/18 11/30/18 11/30/18 01:07 05:39 13:07 Patient Temperature Not Reportable ABG pH 7.25 L ABG pH (Temp Correct) Not Reportable ABG pCO2 96 H* ABG pCO2 (Temp Corrct Not Reportable ABG pO2 75 L ABG pO2 (Temp Correct Not Reportable ABG HCO3 33.2 H ABG O2 Saturation 97.2 ABG Base Excess 10.7 H Respiration Rate Not Reportable O2 Delivery Device Bipap Ventilator Type Not Reportable Vent Mode Not Reportable FiO2 40 Inspiratory Time Not Reportable PEEP Not Reportable Pressure Support Not Reportable Pressure Control Not Reportable EPAP 6 IPAP 12 BiPAP Not Reportable Sodium Potassium Chloride Carbon Dioxide Anion Gap BUN Creatinine Est GFR ( Amer) Est GFR (Non-Af Amer) BUN/Creatinine Ratio Glucose Calcium Magnesium Lyme Total Antibody Negative 12/01/18 12/01/18 07:25 08:00 Patient Temperature Not Reportable ABG pH 7.39 ABG pH (Temp Correct) Not Reportable ABG pCO2 76 H* ABG pCO2 (Temp Corrct Not Reportable ABG pO2 58 L* ABG pO2 (Temp Correct Not Reportable ABG HCO3 37.9 H ABG O2 Saturation 92.1 L ABG Base Excess 16.9 H Respiration Rate Not Reportable O2 Delivery Device 4 lpm nc Ventilator Type Not Reportable Vent Mode Not Reportable FiO2 Not Reportable Inspiratory Time Not Reportable PEEP Not Reportable Pressure Support Not Reportable Pressure Control Not Reportable EPAP Not Reportable IPAP Not Reportable BiPAP Not Reportable Sodium 137 Potassium TNP Chloride 95 L Carbon Dioxide 44 H* Anion Gap Not Reportable BUN 15 Creatinine 0.55 L Est GFR ( Amer) 181.5 Est GFR (Non-Af Amer) 150.0 BUN/Creatinine Ratio 27.3 H Glucose 128 H Calcium 8.7 Magnesium TNP [place]yme Total Antibody Microbiology and Other Data: Microbiology 11/30/18 11:34 Nasal Nasal Screen MRSA (PCR) - Final Mrsa Not Detected 11/29/18 02:48 Nasal Nasal Screen MRSA (PCR) - Final Mrsa Not Detected Assess/Plan/Problems-Billing Assessment: 63 yo M with PMH of recent but now resolved cardiomyopathy (tachycardia-induced? ), pAF, HLD, alcohol abuse, and likely undiagnosed COPD; who presented to the ED with c/o syncope, elevated EtOH and was found to be hypoxic in the 70s. Returned to ICU for rescue BIPAP for hypercapnic respiratory failure. - Patient Problems (1) Hypercapnic respiratory failure Current Visit: Yes Status: Acute Code(s): J96.92 - RESPIRATORY FAILURE, UNSPECIFIED WITH HYPERCAPNIA SNOMED Code(s): 696733912 Comment: likely undiagnosed COPD, needs PFTs as outpatient needing rescue Bipap yesterday, will use during naps, at night and prn for confusion. appreciate Pulm recs. ECHO with evidence of moderate to severe right heart failure and moderate to severe pHTN. RVSP 53mm Hg. contninue duo nebs, dulera, spiriva. continue solumedrol 40mg daily. 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 Improved to 30% about 1 month prior to admission - Echo this admission shows EF 55-60%, no wall motion abnormalities - Continue carvedilol; lisinopril and torsemide (4) DVT prophylaxis Current Visit: Yes Status: Acute Code(s): Z29.9 - ENCOUNTER FOR PROPHYLACTIC MEASURES, UNSPECIFIED SNOMED Code(s): 606576423 Comment: - Eliquis (5) Full code status Current Visit: Yes Status: Acute Code(s): Z78.9 - OTHER SPECIFIED HEALTH STATUS SNOMED Code(s): 855359903 Comment: (6) Hyperlipidemia Current Visit: Yes Status: Acute Code(s): E78.5 - HYPERLIPIDEMIA, UNSPECIFIED SNOMED Code(s): 96378982 Comment: - Continue atorvastatin (7) Hypoxia Current Visit: Yes Status: Acute Code(s): R09.02 - HYPOXEMIA SNOMED Code(s ): 884411356 Comment: - 2/2 COPD and pHTN - s/p Vapotherm on admission - CTA w/o e/o PE - Appreciate Pulm consult - add BNP given persistent lower extremity swelling. (8) Paroxysmal atrial fibrillation Current Visit: Yes Status: Acute Code(s): I48.0 - PAROXYSMAL ATRIAL FIBRILLATION SNOMED Code(s): 871255820 Comment: - EKG shows NSR, rate controlled - Continue carvedilol, Eliquis - replete Mg>2 prn (repeat at hemolyzed) (9) Syncope Current Visit: Yes Status: Acute Code(s): R55 - SYNCOPE AND COLLAPSE SNOMED Code(s): 068922736 Comment: - Suspect secondary to hypoxia - CTH no acute process - ETOH seizure in differential but history does not seem to suggest. Status and Disposition: Inpatient. ICU. May be able to downgrade later today. Will need home Bipap setup
[2018-12-01] MEDS: Carvedilol TAB* 25 MG PO SCH ×2 (10:00→21:01)
[2018-12-01] MEDS: acetaZOLAMIDE TAB* 250 MG PO SCH ×2 (10:35→21:01)
[2018-12-01 10:55] LABS: Magnesium 1.6 mg/dL (1.9-2.7); Potassium Redraw 3.6 mmol/L (3.5-5.0)
[2018-12-01] MEDS ORDERED: Magnesium Sulfate 1 GM IV* 1 GM/100 ML BAG IV ONE (11:56)
[2018-12-01] MEDS: Torsemide TAB 10 MG PO SCH (12:40)
[2018-12-01] MEDS: methylPREDNISolone 125 MG* 2 ML VIAL IV SCH (15:27)
[2018-12-01] MEDS ORDERED: KCL 20 MEQ/100 ML IVPREMIX* 20 MEQ/100 ML BAG IV SCH (16:00)
[2018-12-01] MEDS ORDERED: Potassium Chlor TAB* 20 MEQ TAB.ER PO ONE (16:06)
[2018-12-01] MEDS: Atorvastatin* 10 MG TAB PO SCH (19:22)
--- NOTE | 2018-12-01 20:09 | PN ---
Progress Note - Progress Note Date of Service: 12/01/18 - Pulm f/u note Note: Patient seen and examined at bedside. Patient is sitting up in chair, has BiPAP mask on. Patient with improved hypercapnia. Patient was napping without BiPAP earlier today, was later noted to have mental status changes/confusion. Patient was reinitiated on BiPAP. O2 supplementation was also decreased with improvement in mental status Active Medications Generic Name Dose Route Start Last Admin Trade Name Freq PRN Reason Stop Dose Admin Acetazolamide 250 mg 12/01/18 10:00 12/01/18 10:35 Diamox Tab* PO 250 mg BID [facility] Administration Albuterol 2.5 mg 11/29/18 01:59 Ventolin 2.5 Mg/3 Ml Neb.Zahraa* INH [id number] AWAKE PRN SOB/WHEEZING Apixaban 5 mg 11/29/18 09:00 12/01/18 09:01 Eliquis* PO 5 mg BID [facility] Administration Atorvastatin Calcium 10 mg 11/29/18 18:00 12/01/18 19:22 Lipitor* PO 10 mg QPM [facility] Administration Azithromycin 250 mg 12/02/18 09:00 Zithromax Tab* PO DAILY [facility] Carvedilol 25 mg 11/29/18 09:00 12/01/18 10:00 Coreg Tab* PO Not Given BID [facility] Device 1 each 11/30/18 14:00 Tiotropium Inhaler Device* INH .USE w/ SPIRIVA CAPS [facility] Folic Acid 1 mg 11/30/18 09:00 12/01/18 09:01 Folvite Tab* PO 1 mg DAILY [facility] Administration Lisinopril 2.5 mg 12/01/18 09:00 12/01/18 09:01 Prinivil Tab* PO 2.5 mg DAILY [facility] Administration Lorazepam 0 - 6 mg 12/01/18 09:47 Ativan Tab(*) PO .PER [facility] PROTOCOL [facility] Protocol Methylprednisolone Sodium Succinate 40 mg 11/30/18 14:00 12/01/18 15:27 Solu-Medrol 125mg * IV 40 mg Q24H [facility] Administration Mometasone Furoate/Formoterol Fumar 2 puff 11/30/18 21:00 12/01/18 07:24 Dulera 200/5 Mdi* INH 2 puff BID [facility] Administration Multivitamins/Minerals 1 tab 11/30/18 09:00 12/01/18 09:01 Theragran/Minerals Tab* PO 1 tab DAILY [facility] Administration Thiamine HCl 100 mg 11/30/18 09:00 12/01/18 09:01 Vitamin B-1 Tab* PO 100 mg DAILY [facility] Administration Tiotropium [place] 1 cap 11/30/18 14:00 12/01/18 07:24 Spiriva Cap.Inh* INH 1 cap DAILY [facility] Administration Torsemide 5 mg 11/30/18 09:00 12/01/18 12:40 Torsemide PO 5 mg DAILY [facility] Administration Vital Signs Temp Pulse Resp BP Pulse Ox 97.1 F 65 18 122/83 93 12/01/18 19:17 12/01/18 07:30 12/01/18 07:30 12/01/18 06:00 12/01/18 07:30 Laboratory Results - last 24 hr 12/01/18 12/01/18 12/01/18 07:25 08:00 10:05 Patient Temperature Not Reportable ABG pH 7.39 ABG pH (Temp Correct) Not Reportable ABG pCO2 76 H* ABG pCO2 (Temp Corrct Not Reportable ABG pO2 58 L* ABG pO2 (Temp Correct Not Reportable ABG HCO3 37.9 H ABG O2 Saturation 92.1 L ABG Base Excess 16.9 H Respiration Rate Not Reportable O2 Delivery Device 4 lpm nc Ventilator Type Not Reportable Vent Mode Not Reportable FiO2 Not Reportable Inspiratory Time Not Reportable PEEP Not Reportable Pressure Support Not Reportable Pressure Control Not Reportable EPAP Not Reportable IPAP Not Reportable BiPAP Not Reportable Sodium 137 Potassium TNP 3.6 Chloride 95 L Carbon Dioxide 44 H* Anion Gap Not Reportable BUN 15 Creatinine 0.55 L Est GFR ( Amer) 181.5 Est GFR (Non-Af Amer) 150.0 BUN/Creatinine Ratio 27.3 H Glucose 128 H Hemoglobin A1c Calcium 8.7 Magnesium TNP 1.6 L B-Natriuretic Peptide 12/01/18 12/01/18 11:40 11:40 Patient Temperature ABG pH ABG pH (Temp Correct) ABG pCO2 ABG pCO2 (Temp Corrct ABG pO2 ABG pO2 (Temp Correct ABG HCO3 ABG O2 Saturation ABG Base Excess Respiration Rate O2 Delivery Device Ventilator Type Vent Mode FiO2 Inspiratory Time PEEP Pressure Support Pressure Control EPAP IPAP BiPAP Sodium Potassium Chloride Carbon Dioxide Anion Gap BUN Creatinine Est GFR ( Amer) Est GFR (Non-Af Amer) BUN/Creatinine Ratio Glucose Hemoglobin A1c 6.7 H Calcium Magnesium B-Natriuretic Peptide 336 H O/E: Pt in NAD HEENT: PERRLA, BiPAP mask in place Lungs: Diminished air entry b/l, no wheeze CVS: S1, S2+ Abd: Obese, BS+ Ext: Edema+ Neuro: No focal deficits I/R: 63 yo M with signficant smoking history, recently dx with cardiomyopathy ( tachycardia-induced?), pAF, HLD, alcohol abuse, and ? COPD; who presented to the ED with c/o syncope and was found to be hypoxic in the 70s requiring Vapotherm. Pt with persistent hypoxia, ABG Showed acute hypercapnic resp failure with resp acidosis Pt was transferred to ICU for rescue BiPAP ABG from this morning was reviewed, significant improvement in hypercapnia and acidosis Patient still remains hypoxemic Extremity edema is improving Pt tolerating BiPAP well Will give break from NIPPV for few hrs and will place pt on BiPAP over night patient also with cor pulmonale c/w bronchodilators, steroids D/w patient and daughter at bedside
[2018-12-02] MEDS: Mometasone/Formoter 200/5 MDI INH SCH ×3 (07:00→19:51)
[2018-12-02] MEDS: Tiotropium CAP.INH* CAP.INH/18 MCG (USE ORDER SET !) INH SCH (07:22)
[2018-12-02 07:32] LABS: BUN/Creatinine Ratio 35.5 (8-20); Calcium 9.2 mg/dL (8.6-10.3); EGFR Non-African American 130.6 (>60); Magnesium 2.3 mg/dL (1.9-2.7); Potassium 4.8 mmol/L (3.5-5.0)
[2018-12-02] MEDS: acetaZOLAMIDE TAB* 250 MG PO SCH ×2 (08:59→16:40)
[2018-12-02] MEDS: Folic Acid TAB* 1 MG PO SCH (08:59)
[2018-12-02] MEDS: Multivitamins/Minerals TAB PO SCH (09:00)
[2018-12-02] MEDS: Azithromycin TAB* 250 MG PO SCH (09:00)
[2018-12-02] MEDS: Lisinopril TAB* 5 MG PO SCH (09:00)
[2018-12-02] MEDS: Carvedilol TAB* 25 MG PO SCH ×2 (09:00→20:18)
[2018-12-02] MEDS: Thiamine TAB* 100 MG TAB PO SCH (09:00)
[2018-12-02] MEDS: Apixaban* 5 MG TAB PO SCH ×2 (09:01→20:28)
[2018-12-02] MEDS: Torsemide TAB 10 MG PO SCH (09:54)
--- NOTE | 2018-12-02 10:56 | PN ---
Subjective Interval History: 5 hours on bipap, woke up confused on it after nap yesterday afternoon. bicarb 35 from 44 frequent bigemeny. occasional hacking cough. productive. Family History: Unchanged from Admission Social History: Unchanged from Admission Past Medical History: Unchanged from Admission Objective Active Medications: Acetazolamide (Diamox Tab*) 250 mg PO 0900,1700 [facility] Last Admin: 12/02/18 08:59 Dose: 250 mg Albuterol (Ventolin 2.5 Mg/3 Ml Neb.Zahraa*) 2.5 mg INH [id number] AWAKE PRN PRN Reason: SOB/WHEEZING Apixaban (Eliquis*) 5 mg PO BID [facility] Last Admin: 12/02/18 09:01 Dose: 5 mg Atorvastatin Calcium (Lipitor*) 10 mg PO QPM [facility] Last Admin: 12/01/18 19:22 Dose: 10 mg Azithromycin (Zithromax Tab*) 250 mg PO DAILY [facility] Last Admin: 12/02/18 09:00 Dose: 250 mg Carvedilol (Coreg Tab*) 25 mg PO BID [facility] Last Admin: 12/02/18 09:00 Dose: 25 mg Device (Tiotropium Inhaler Device*) 1 each INH .USE w/ SPIRIVA CAPS [facility] Folic Acid (Folvite Tab*) 1 mg PO DAILY [facility] Last Admin: 12/02/18 08:59 Dose: 1 mg Lisinopril (Prinivil Tab*) 2.5 mg PO DAILY [facility] Last Admin: 12/02/18 09:00 Dose: 2.5 mg Lorazepam (Ativan Tab(*)) 0 - 6 mg PO .PER [place] PROTOCOL [facility]; Protocol Methylprednisolone Sodium Succinate (Solu-Medrol 125mg *) 40 mg IV Q24H [facility] Last Admin: 12/01/18 15:27 Dose: 40 mg Mometasone Furoate/Formoterol Fumar (Dulera 200/5 Mdi*) 2 puff INH BID [facility] Last Admin: 12/02/18 07:22 Dose: 2 puff Multivitamins/Minerals (Theragran/Minerals Tab*) 1 tab PO DAILY [facility] Last Admin: 12/02/18 09:00 Dose: 1 tab Thiamine HCl (Vitamin B-1 Tab*) 100 mg PO DAILY [facility] Last Admin: 12/02/18 09:00 Dose: 100 mg Tiotropium [place] (Spiriva Cap.Inh*) 1 cap INH DAILY [facility] Last Admin: 12/02/18 07:22 Dose: 1 cap Torsemide (Torsemide) 5 mg PO DAILY [facility] Last Admin: 12/02/18 09:54 Dose: 5 mg Vital Signs - 8 hr 12/02/18 12/02/18 12/02/18 03:00 04:00 05:00 Temperature 97.0 F Pulse Rate 70 79 76 Respiratory 16 28 12 Rate Blood Pressure 140/91 144/88 (mmHg) O2 Sat by Pulse 96 93 89 Oximetry 12/02/18 12/02/18 12/02/18 05:43 06:00 07:24 Temperature Pulse Rate 79 73 76 Respiratory 15 16 21 Rate Blood Pressure 151/98 149/123 (mmHg) O2 Sat by Pulse 93 95 92 Oximetry 12/02/18 08:00 Temperature 98.1 F Pulse Rate Respiratory Rate Blood Pressure (mmHg) O2 Sat by Pulse Oximetry Oxygen Devices in Use Now: Nasal Cannula Appearance: NAD, sitting in chair. Eyes: No Scleral Icterus Ears/Nose/Mouth/Throat: NL Teeth, Lips, Gums Neck: NL Appearance and Movements; NL JVP Respiratory: - - reduced BS, no wheezing, rales, or rhonchi. Cardiovascular: NL Sounds; No Murmurs; No JVD, RRR, - Abdominal: NL Sounds; No Tenderness; No Distention Extremities: - - trace-1+ pitting b/l Skin: No Rash or Ulcers Neurological: Alert and Oriented x 3 Nutrition: Taking PO's Result Diagrams: 11/29/18 05:17 12/02/18 06:46 Additional Lab and Data: Laboratory Results - last 24 hr 12/02/18 06:46 Sodium 136 Potassium 4.8 Chloride 98 L Carbon Dioxide 35 H Anion Gap 3 BUN 22 Creatinine 0.62 L Est GFR ( Amer) 158.0 Est GFR (Non-Af Amer) 130.6 BUN/Creatinine Ratio 35.5 H Glucose 110 H Calcium 9.2 Magnesium 2.3 Microbiology and Other Data: Microbiology 11/30/18 11:34 Nasal Nasal Screen MRSA (PCR) - Final Mrsa Not Detected 11/29/18 02:48 Nasal Nasal Screen MRSA (PCR) - Final Mrsa Not Detected Assess/Plan/Problems-Billing Assessment: 63 yo M with PMH of recent but now resolved cardiomyopathy (tachycardia-induced? ), pAF, HLD, alcohol abuse, and likely undiagnosed COPD; who presented to the ED with c/o syncope, elevated EtOH and was found to be hypoxic in the 70s. Returned to ICU for rescue BIPAP for hypercapnic respiratory failure. Back to floor 12/02 - Patient Problems (1) Hypercapnic respiratory failure Current Visit: Yes Status: Acute Code(s): J96.92 - RESPIRATORY FAILURE, UNSPECIFIED WITH HYPERCAPNIA SNOMED Code(s): 599271948 Comment: likely undiagnosed COPD, needs PFTs as outpatient continue Bipap, for naps, at night and prn for confusion. appreciate Pulm recs. ECHO with evidence of moderate to severe right heart failure and moderate to severe pHTN. RVSP 53mm Hg. contninue duo nebs, dulera, spiriva. decrease solumedrol 40mg daily to prednisone 40mg continue diamox 250mg BID for respiratory drive stimulant given bicarb elevation. 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 Improved to 30% about 1 month prior to admission - Echo this admission shows EF 55-60%, no wall motion abnormalities - Continue carvedilol; lisinopril and torsemide (4) DVT prophylaxis Current Visit: Yes Status: Acute Code(s): Z29.9 - ENCOUNTER FOR PROPHYLACTIC MEASURES, UNSPECIFIED SNOMED Code(s): 160067753 Comment: - [place] (5) Full code status Current Visit: Yes Status: Acute Code(s): Z78.9 - OTHER SPECIFIED HEALTH STATUS SNOMED Code(s): 518996333 Comment: (6) Hyperlipidemia Current Visit: Yes Status: Acute Code(s): E78.5 - HYPERLIPIDEMIA, UNSPECIFIED SNOMED Code(s): 24993270 Comment: - Continue atorvastatin (7) Hypoxia Current Visit: Yes Status: Acute Code(s): R09.02 - HYPOXEMIA SNOMED Code(s ): 222198059 Comment: - 2/2 COPD and pHTN - s/p Vapotherm on admission - CTA w/o e/o PE - Appreciate Pulm consult - add BNP given persistent lower extremity swelling. (8) Paroxysmal atrial fibrillation Current Visit: Yes Status: Acute Code(s): I48.0 - PAROXYSMAL ATRIAL FIBRILLATION SNOMED Code(s): 537519585 Comment: - EKG shows NSR, rate controlled - Continue carvedilol, Eliquis - replete Mg>2 prn (9) Syncope Current Visit: Yes Status: Acute Code(s): R55 - SYNCOPE AND COLLAPSE SNOMED Code(s): 466166797 Comment: - Suspect secondary to hypoxia - CTH no acute process - ETOH seizure in differential but history does not seem to suggest. Status and Disposition: Inpatient, medicine, downgraded from ICU today. Will need home Bipap setup
--- NOTE | 2018-12-02 13:00 | PN ---
Progress Note - Progress Note Date of Service: 12/02/18 - Pulm f/u note Note: Pt seen and examined at bedside. Pt reports feeling better. He is sitting up in chair. Denies significant cough or sputum production. Able to tolerate BiPAP well. Active Medications Generic Name Dose Route Start Last Admin Trade Name Freq PRN Reason Stop Dose Admin Acetazolamide 250 mg 12/02/18 09:00 12/02/18 08:59 Diamox Tab* PO 250 mg 0900,1700 [facility] Administration Albuterol 2.5 mg 11/29/18 01:59 Ventolin 2.5 Mg/3 Ml Neb.Zahraa* INH [id number] AWAKE PRN SOB/WHEEZING Apixaban 5 mg 11/29/18 09:00 12/02/18 09:01 Eliquis* PO 5 mg BID [facility] Administration Atorvastatin Calcium 10 mg 11/29/18 18:00 12/01/18 19:22 Lipitor* PO 10 mg QPM [facility] Administration Azithromycin 250 mg 12/02/18 09:00 12/02/18 09:00 Zithromax Tab* PO 250 mg DAILY [facility] Administration Carvedilol 25 mg 11/29/18 09:00 12/02/18 09:00 Coreg Tab* PO 25 mg BID [facility] Administration Device 1 each 11/30/18 14:00 Tiotropium Inhaler Device* INH .USE w/ SPIRIVA CAPS [facility] Folic Acid 1 mg 11/30/18 09:00 12/02/18 08:59 Folvite Tab* PO 1 mg DAILY [facility] Administration Lisinopril 2.5 mg 12/01/18 09:00 12/02/18 09:00 Prinivil Tab* PO 2.5 mg DAILY [facility] Administration Mometasone Furoate/Formoterol Fumar 2 puff 11/30/18 21:00 12/02/18 07:22 Dulera 200/5 Mdi* INH 2 puff BID [facility] Administration Multivitamins/Minerals 1 tab 11/30/18 09:00 12/02/18 09:00 Theragran/Minerals Tab* PO 1 tab DAILY [facility] Administration Thiamine HCl 100 mg 11/30/18 09:00 12/02/18 09:00 Vitamin B-1 Tab* PO 100 mg DAILY [facility] Administration Tiotropium [place] 1 cap 11/30/18 14:00 12/02/18 07:22 Spiriva Cap.Inh* INH 1 cap DAILY [facility] Administration Torsemide 5 mg 11/30/18 09:00 12/02/18 09:54 Torsemide PO 5 mg DAILY [facility] Administration Vital Signs Temp Pulse Resp BP Pulse Ox 97.9 F 42 27 97/50 91 12/02/18 12:00 12/02/18 11:02 12/02/18 11:02 12/02/18 11:02 12/02/18 11:02 Laboratory Results - last 24 hr 12/01/18 12/02/18 11:40 06:46 Sodium 136 Potassium 4.8 Chloride 98 L Carbon Dioxide 35 H Anion Gap 3 BUN 22 Creatinine 0.62 L Est GFR ( Amer) 158.0 Est GFR (Non-Af Amer) 130.6 BUN/Creatinine Ratio 35.5 H Glucose 110 H Hemoglobin A1c 6.7 H Calcium 9.2 Magnesium 2.3 O/E: Pt in NAD, sitting up in chair HEENT: PERRLA, no JVD Lungs: Diminished air entry b/l, no wheeze CVS: S1, S2+ Abd: Obese, BS+ Ext: Edema+ Neuro: No focal deficits I/R: 63 yo M with significant smoking history, recently dx with cardiomyopathy ( tachycardia-induced?), pAF, HLD, alcohol abuse, and ? COPD; who presented to the ED with c/o syncope and was found to be hypoxic in the 70s requiring Vapotherm. Pt with persistent hypoxia, ABG showed acute hypercapnic resp failure with resp acidosis Pt was transferred to ICU for rescue BiPAP Rpt ABG showed improvement in hypercapnia and acidosis. Bicarbonate levels also improving Patient still remains hypoxemic, is requiring 4L O2 Extremity edema is improving, pt appears to be on dry side Pt tolerating BiPAP well Will c/w BiPAP over night and with daytime naps Significant improvement in mental status patient also with cor pulmonale c/w bronchodilators, steroids Pt to be transferred to medical floor Will need 6MWT prior to d/c to assess O2 needs Will need PFTs, pt lives in [place] Will obtain spirometry prior to d/c Will need to be d/herminia on BiPAP and O2 Pt and daughter had questions that were answered D/w bedside BELTRAN
[2018-12-02] MEDS: Atorvastatin* 10 MG TAB PO SCH (16:40)
[2018-12-03 06:10] LABS: BUN/Creatinine Ratio 35.8 (8-20); Calcium 8.7 mg/dL (8.6-10.3); EGFR African American 144.5 (>60); EGFR Non-African American 119.4 (>60); Potassium 4.5 mmol/L (3.5-5.0)
[2018-12-03] MEDS: Tiotropium CAP.INH* CAP.INH/18 MCG (USE ORDER SET !) INH SCH (07:08)
[2018-12-03] MEDS: Mometasone/Formoter 200/5 MDI INH SCH ×2 (07:09→19:59)
[2018-12-03] MEDS: Torsemide TAB 10 MG PO SCH (09:04)
[2018-12-03] MEDS: Multivitamins/Minerals TAB PO SCH (09:07)
[2018-12-03] MEDS: Apixaban* 5 MG TAB PO SCH ×2 (09:07→20:23)
[2018-12-03] MEDS: Lisinopril TAB* 5 MG PO SCH (09:07)
[2018-12-03] MEDS: Carvedilol TAB* 25 MG PO SCH ×2 (09:07→20:22)
[2018-12-03] MEDS: Folic Acid TAB* 1 MG PO SCH (09:08)
[2018-12-03] MEDS: acetaZOLAMIDE TAB* 250 MG PO SCH ×2 (09:08→17:18)
[2018-12-03] MEDS: predniSONE TAB* 20 MG PO SCH (09:08)
[2018-12-03] MEDS: Thiamine TAB* 100 MG TAB PO SCH (09:08)
[2018-12-03] MEDS: Azithromycin TAB* 250 MG PO SCH (09:08)
--- NOTE | 2018-12-03 16:16 | PN ---
Subjective Date of Service: 12/03/18 Interval History: No acute events overnight. Tolerated Bipap 10pm to 6am, one break to urinate Walking halls, felling well SBP on low side, asymptomatic telemetry: NSR, occasional atrial bigemeny Family History: Unchanged from Admission Social History: Unchanged from Admission Past Medical History: Unchanged from Admission Objective Active Medications: Acetazolamide (Diamox Tab*) 250 mg PO 0900,1700 [facility] Last Admin: 12/03/18 09:08 Dose: 250 mg Albuterol (Ventolin 2.5 Mg/3 Ml Neb.Zahraa*) 2.5 mg INH [id number] AWAKE PRN PRN Reason: SOB/WHEEZING Apixaban (Eliquis*) 5 mg PO BID [facility] Last Admin: 12/03/18 09:07 Dose: 5 mg Atorvastatin Calcium (Lipitor*) 10 mg PO QPM [facility] Last Admin: 12/02/18 16:40 Dose: 10 mg Azithromycin (Zithromax Tab*) 250 mg PO DAILY [facility] Last Admin: 12/03/18 09:08 Dose: 250 mg Carvedilol (Coreg Tab*) 12.5 mg PO BID [facility] Device (Tiotropium Inhaler Device*) 1 each INH .USE w/ SPIRIVA CAPS [facility] Folic Acid (Folvite Tab*) 1 mg PO DAILY [facility] Last Admin: 12/03/18 09:08 Dose: 1 mg Lisinopril (Prinivil Tab*) 2.5 mg PO DAILY [facility] Last Admin: 12/03/18 09:07 Dose: 2.5 mg Mometasone Furoate/Formoterol Fumar (Dulera 200/5 Mdi*) 2 puff INH BID [facility] Last Admin: 12/03/18 07:09 Dose: 2 puff Multivitamins/Minerals (Theragran/Minerals Tab*) 1 tab PO DAILY [facility] Last Admin: 12/03/18 09:07 Dose: 1 tab Prednisone (Deltasone Tab*) 40 mg PO DAILY [facility] Last Admin: 12/03/18 09:08 Dose: 40 mg Thiamine HCl (Vitamin B-1 Tab*) 100 mg PO DAILY [facility] Last Admin: 12/03/18 09:08 Dose: 100 mg Tiotropium [place] (Spiriva Cap.Inh*) 1 cap INH DAILY [facility] Last Admin: 12/03/18 07:08 Dose: 1 cap Torsemide (Torsemide) 5 mg PO Q48H [facility] Oxygen Devices in Use Now: Nasal Cannula Appearance: NAD Eyes: No Scleral Icterus Ears/Nose/Mouth/Throat: NL Teeth, Lips, Gums Respiratory: Symmetrical Chest Expansion and Respiratory Effort, Clear to Auscultation, - - moderate air exchange, Cardiovascular: NL Sounds; No Murmurs; No JVD, RRR Abdominal: NL Sounds; No Tenderness; No Distention, No Hepatosplenomegaly Extremities: - - trace edema Skin: No Rash or Ulcers Neurological: Alert and Oriented x 3 Nutrition: Taking PO's Result Diagrams: 11/29/18 05:17 12/03/18 05:34 Additional Lab and Data: Laboratory Results - last 24 hr 12/03/18 05:34 Sodium 137 Potassium 4.5 Chloride 99 L Carbon Dioxide 34 H Anion Gap 4 BUN 24 Creatinine 0.67 Est GFR ( Amer) 144.5 Est GFR (Non-Af Amer) 119.4 BUN/Creatinine Ratio 35.8 H Glucose 87 Calcium 8.7 Magnesium 2.0 Microbiology and Other Data: Microbiology 11/30/18 11:34 Nasal Nasal Screen MRSA (PCR) - Final Mrsa Not Detected 11/29/18 02:48 Nasal Nasal Screen MRSA (PCR) - Final Mrsa Not Detected Assess/Plan/Problems-Billing Assessment: 63 yo M with PMH of recent but now resolved cardiomyopathy (tachycardia-induced? , had been EF as low as 20%), pAFib(on Eliquis), HLD, daily alcohol use, and likely undiagnosed COPD; who presented to the ED with c/o syncope, elevated EtOH and was found to be hypoxic in the 70s. Returned to ICU for rescue BIPAP for hypercapnic respiratory failure. Back to floor 12/02 - Patient Problems (1) Hypercapnic respiratory failure Current Visit: Yes Status: Acute Code(s): J96.92 - RESPIRATORY FAILURE, UNSPECIFIED WITH HYPERCAPNIA SNOMED Code(s): 503227039 Comment: likely undiagnosed COPD, needs PFTs as outpatient continue Bipap, for naps, at night and prn for confusion. appreciate Pulm recs. ECHO with evidence of moderate to severe right heart failure and moderate to severe pHTN. RVSP 53mm Hg. contninue duo nebs, dulera, spiriva. continue prednisone 40mg continue diamox 250mg BID for respiratory drive stimulant given bicarb elevation. 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 Improved to 30% about 1 month prior to admission - Echo this admission shows EF 55-60%, no wall motion abnormalities - Continue carvedilol (but reduce dose from 25mg BID to 12.5mg BID given low blood pressures; lisinopril 2.5mg and torsemide (make everother day 5mg as at home - closer to euvolemic) (3) DVT prophylaxis Current Visit: Yes Status: Acute Code(s): Z29.9 - ENCOUNTER FOR PROPHYLACTIC MEASURES, UNSPECIFIED SNOMED Code(s): 119168632 Comment: - Eliquis (4) Hypoxia Current Visit: Yes Status: Acute Code(s): R09.02 - HYPOXEMIA SNOMED Code(s ): 704645310 Comment: - 2/2 COPD and pHTN - s/p Vapotherm on admission - CTA w/o e/o PE - Appreciate Pulm consult - Home O2 qualifier for 12/04 (5) Hyperlipidemia Current Visit: Yes Status: Acute Code(s): E78.5 - HYPERLIPIDEMIA, UNSPECIFIED SNOMED Code(s): 20577421 Comment: - Continue atorvastatin (6) Paroxysmal atrial fibrillation Current Visit: Yes Status: Acute Code(s): I48.0 - PAROXYSMAL ATRIAL FIBRILLATION SNOMED Code(s): 621344008 Comment: - EKG shows NSR, rate controlled - Continue carvedilol, Eliquis - replete Mg>2 prn (7) Syncope Current Visit: Yes Status: Acute Code(s): R55 - SYNCOPE AND COLLAPSE SNOMED Code(s): 304576709 Comment: - Suspect secondary to hypoxia - CTH no acute process - ETOH seizure in differential but history does not seem to suggest. (8) Alcohol abuse Current Visit: Yes Status: Acute Code(s): F10.10 - ALCOHOL ABUSE, UNCOMPLICATED SNOMED Code(s): 38190416 Comment: - d/c'd from [facility], did not score - continue thiamine, folic acid, multivitamin (9) Full code status Current Visit: Yes Status: Acute Code(s): Z78.9 - OTHER SPECIFIED HEALTH STATUS SNOMED Code(s): 136026364 Comment: Status and Disposition: Inpatient, medicine, downgraded from ICU today. Will need home Bipap setup
[2018-12-03] MEDS: Atorvastatin* 10 MG TAB PO SCH (17:18)
[2018-12-04 07:11] LABS: BUN/Creatinine Ratio 34.2 (8-20); Calcium 9.2 mg/dL (8.6-10.3); EGFR African American 124.9 (>60); EGFR Non-African American 103.3 (>60); Magnesium 2.1 mg/dL (1.9-2.7); Potassium 3.9 mmol/L (3.5-5.0)
[2018-12-04] MEDS: Mometasone/Formoter 200/5 MDI INH SCH ×2 (08:12→19:20)
[2018-12-04] MEDS: Tiotropium CAP.INH* CAP.INH/18 MCG (USE ORDER SET !) INH SCH (08:12)
[2018-12-04] MEDS: Folic Acid TAB* 1 MG PO SCH (10:21)
[2018-12-04] MEDS: predniSONE TAB* 20 MG PO SCH (10:21)
[2018-12-04] MEDS: Azithromycin TAB* 250 MG PO SCH (10:22)
[2018-12-04] MEDS: Lisinopril TAB* 5 MG PO SCH (10:22)
[2018-12-04] MEDS: Carvedilol TAB* 25 MG PO SCH ×2 (10:22→22:21)
[2018-12-04] MEDS: Apixaban* 5 MG TAB PO SCH ×2 (10:22→21:42)
[2018-12-04] MEDS: acetaZOLAMIDE TAB* 250 MG PO SCH ×2 (10:22→16:47)
[2018-12-04] MEDS: Multivitamins/Minerals TAB PO SCH (10:23)
[2018-12-04] MEDS: Thiamine TAB* 100 MG TAB PO SCH (10:23)
[2018-12-04] MEDS: Atorvastatin* 10 MG TAB PO SCH (17:14)
--- NOTE | 2018-12-04 18:58 | PN ---
<Maylin Matthews - Last Filed: 12/04/18 19:56> Subjective Date of Service: 12/04/18 Interval History: No any acute events today. Planned for overnight sleep study for qualification for BiPap. 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 Objective Active Medications: Acetazolamide (Diamox Tab*) 250 mg PO 0900,1700 [facility] Last Admin: 12/04/18 16:47 Dose: 250 mg Albuterol (Ventolin 2.5 Mg/3 Ml Neb.Zahraa*) 2.5 mg INH [id number] AWAKE PRN PRN Reason: SOB/WHEEZING Apixaban (Eliquis*) 5 mg PO BID [facility] Last Admin: 12/04/18 10:22 Dose: 5 mg Atorvastatin Calcium (Lipitor*) 10 mg PO QPM [facility] Last Admin: 12/04/18 17:14 Dose: 10 mg Azithromycin (Zithromax Tab*) 250 mg PO DAILY [facility] Last Admin: 12/04/18 10:22 Dose: 250 mg Carvedilol (Coreg Tab*) 12.5 mg PO BID [facility] Last Admin: 12/04/18 10:22 Dose: 12.5 mg Device (Tiotropium Inhaler Device*) 1 each INH .USE w/ SPIRIVA CAPS [facility] Folic Acid (Folvite Tab*) 1 mg PO DAILY [facility] Last Admin: 12/04/18 10:21 Dose: 1 mg Lisinopril (Prinivil Tab*) 2.5 mg PO DAILY [facility] Last Admin: 12/04/18 10:22 Dose: 2.5 mg Mometasone Furoate/Formoterol Fumar (Dulera 200/5 Mdi*) 2 puff INH BID [facility] Last Admin: 12/04/18 08:12 Dose: 2 puff Multivitamins/Minerals (Theragran/Minerals Tab*) 1 tab PO DAILY [facility] Last Admin: 12/04/18 10:23 Dose: 1 tab Prednisone (Deltasone Tab*) 40 mg PO DAILY [facility] Last Admin: 12/04/18 10:21 Dose: 40 mg Thiamine HCl (Vitamin B-1 Tab*) 100 mg PO DAILY [facility] Last Admin: 12/04/18 10:23 Dose: [address] (Spiriva Cap.Inh*) 1 cap INH DAILY [facility] Last Admin: 12/04/18 08:12 Dose: 1 cap Torsemide (Torsemide) 5 mg PO Q48H [facility] Vital Signs - 8 hr 12/04/18 12/04/18 12/04/18 11:47 12:20 15:15 Temperature 97.9 F 98.3 F Pulse Rate 79 69 Respiratory 20 22 Rate Blood Pressure 116/74 104/64 (mmHg) O2 Sat by Pulse 93 91 90 Oximetry Oxygen Devices in Use Now: None Result Diagrams: 11/29/18 05:17 12/04/18 06:31 Additional Lab and Data: Laboratory Results - last 24 hr 12/03/18 05:34 Sodium 137 Potassium 4.5 Chloride 99 L Carbon Dioxide 34 H Anion Gap 4 BUN 24 Creatinine 0.67 Est GFR ( Amer) 144.5 Est GFR (Non-Af Amer) 119.4 BUN/Creatinine Ratio 35.8 H Glucose 87 Calcium 8.7 Magnesium 2.0 Microbiology and Other Data: Microbiology 11/30/18 11:34 Nasal Nasal Screen MRSA (PCR) - Final Mrsa Not Detected 11/29/18 02:48 Nasal Nasal Screen MRSA (PCR) - Final Mrsa Not Detected Assess/Plan/Problems-Billing Assessment: 63 y/o M w/ PMH cardiomyopathy, pAFib, daily alcohol use, HLD and undiagnosed COPD admitted with diagnosis of Hypercapnic respiratory failure and syncope who presented to the ED with c/o syncope, elevated EtOH and was found to be hypoxic in the 70s. Returned to ICU for rescue BIPAP for hypercapnic respiratory failure. Back to floor 12/02 Status and Disposition: Inpatient, medicine, downgraded from ICU. Will need home Bipap setup. May need PFT for COPD. <Heath Edmondson - Last Filed: 12/05/18 17:03> Objective Result Diagrams: 11/29/18 05:17 12/04/18 06:31 Assess/Plan/Problems-Billing Assessment: 63 yo M p/w hypoxic respiratory failure requiring vapotherm and bipap rescue Standing in room, reports several trips around floor today w/out O2 Course breath sounds on right IRIR Distended abd, NT, +bs Trace LE edema Hypoxic respiratory failure - suspected COPD exacerbation -azithromycin -prednisone PO -spiriva and dulera -overnight oximetry to qualify for BiPAP -needs BiPAP at discharge Tobacco abuse -counseled cessation, in maintenance phase Alcoholism No e/o withdrawal Counseled cessation VIOLETTA sleep study tonight to qualify for BiPAP on discharge Attestation Documenting Resident: Cassie Supervising Physician: Delvis Attestation: This service has been performed in part by a resident under the direction of a teaching physician.Delvis Santoro, performed the service, or was physically present during the critical, or rodriguez portions of the service, furnished by the resident. I participated in the management of the patient.
[2018-12-04] MEDS: Carvedilol TAB* 6.25 MG PO SCH (22:20)
[2018-12-05] MEDS: Tiotropium CAP.INH* CAP.INH/18 MCG (USE ORDER SET !) INH SCH (07:56)
[2018-12-05] MEDS: Mometasone/Formoter 200/5 MDI INH SCH (07:58)
[2018-12-05 08:19] VITALS: BP 113/79
[2018-12-05] MEDS ORDERED: Torsemide TAB 10 MG PO SCH (09:00)
[2018-12-05] MEDS: Folic Acid TAB* 1 MG PO SCH (09:24)
[2018-12-05] MEDS: Azithromycin TAB* 250 MG PO SCH (09:25)
[2018-12-05] MEDS: predniSONE TAB* 20 MG PO SCH (09:25)
[2018-12-05] MEDS: Lisinopril TAB* 5 MG PO SCH (09:25)
[2018-12-05] MEDS: Multivitamins/Minerals TAB PO SCH (09:26)
[2018-12-05] MEDS: Apixaban* 5 MG TAB PO SCH (09:26)
[2018-12-05] MEDS: Thiamine TAB* 100 MG TAB PO SCH (09:26)
[2018-12-05] MEDS: Carvedilol TAB* 6.25 MG PO SCH (09:31)
[2018-12-05] MEDS: acetaZOLAMIDE TAB* 250 MG PO SCH (09:45)
--- NOTE | 2018-12-05 21:59 | DS ---
CC: Dr. Antonella Pretty * DISCHARGE SUMMARY: DATE OF ADMISSION: 11/28/18 DATE OF DISCHARGE: 12/05/18 PRIMARY CARE PHYSICIAN: None. 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 Antonella Pretty in [place], [place]. DISPOSITION ON DISCHARGE: Home. CONDITION ON DISCHARGE: Improved. PRIMARY DIAGNOSES: 1. Hypoxic and combined hypercarbic respiratory failure. 2. Suspected chronic obstructive pulmonary disease exacerbation. 3. Congestive heart failure. 4. Atrial fibrillation. 5. Alcohol abuse. 6. Obstructive sleep apnea. SECONDARY DIAGNOSIS: Diabetes. MEDICATIONS ON DISCHARGE: 1. Atorvastatin 10 mg in the evening. 2. Eliquis 5 mg twice daily. 3. Prednisone 40 mg daily for 5 additional days. 4. Torsemide 5 mg every other day. 5. Spiriva 1 cap inhaled daily. 6. Lisinopril 2.5 mg daily. 7. Fluticasone and salmeterol 250/50 one puff inhaled twice daily. 8. Carvedilol 6.25 mg twice daily. 9. Albuterol HFA 1 puff every 4 hours as needed for shortness of breath. DIAGNOSTIC STUDIES/LAB DATA: Pertinent imaging performed during hospital stay: CTA of chest and thorax: Impression: No evidence of PE aneurysm or dissection , bilateral adrenal nodules, further workup is recommended. Pertinent laboratory data during hospital stay: Arterial blood gas on presentation, pH 7.21, pCO2 of 95, pO2 of 101 on 3.5 L nasal cannula. Hemoglobin A1c is 6.7%. Serum alcohol level is 171. HISTORY OF PRESENT ILLNESS AND HOSPITAL COURSE: This is a 63-year-old man with past medical history as outlined in the history of present illness. On day of admission, presented to the hospital after syncope, found with hypoxia, O2 sats 70% in the field, carries a history of tachy-induced cardiomyopathy, his EF in the hospital was noted to be 50% to 60%. The patient, however, the right ventricle is moderately to severely reduced. The patient was admitted to the ICU required Vapotherm and BiPAP, recovered well, was on 2 L oxygen at the time of discharge. He is being discharged with oxygen, could use at all times. Additionally, he had a high suspicion for obstructive sleep apnea. He was watched overnight on sleep study. Desat is less than 88% for 5 minutes for planned oxygen and BiPAP, to qualify him for insurance purposes for BiPAP machine. He will need formal sleep study as well as PFTs upon discharge. He will also follow up on his adrenal nodules noted on CT of his chest as indicated above. On the day of discharge, he was ambulating around the unit without distress, was anxious to leave. He was started on multiple new medications, which were discussed with the patient prior to discharge. The patient and his daughter were frustrated with the difficulty getting into [facility] as well as primary care in [place], [place]. All attempts to assist this patient and establishing care were made, however, unsuccessful to establish care outside of our network. He was offered followup at those practises in our network which we are able to have local control and establish care, however, declined as he was in [place]. At followup, please; 1. Extend prednisone taper as necessary. 2. Arrange for formal PFTs as well as sleep study titration for BiPAP. 3. Followup adrenal nodules as indicated above. 4. Consider initiation of metformin for diabetes. Hemoglobin A1c is 6.7%. Reasons to return to the hospital including but not limited to recurrent or worsening symptoms including chest pain, shortness of breath, nausea, vomiting, lightheadedness, loss of consciousness, near loss of consciousness, bleeding from any source, inability to obtain or tolerate medications discussed with the patient, and his daughter did acknowledge understanding. TIME SPENT: Greater than 60 minutes was spent in the discharge of the patient, greater than half was spent [id number] with the patient. [id number]/CPS #: [id number] MTDD
== END 2018-12-05 13:52 | disposition home or self-care (01) | DRG 133 ==
LOC: ED 21:16 → ICU 11-29 01:51 → MEDTELE 11-29 11:45 → ICU 11-30 11:48 → MEDTELE 12-02 10:23
PROVIDERS: ADMIT Internal Medicine; ATTEND Internal Medicine
DX: J96.02 Acute respiratory failure with hypercapnia (principal); J44.1 Chronic obstructive pulmonary disease with (acute) exacerbation; I42.0 Dilated cardiomyopathy; E87.2 Acidosis; J96.91 Respiratory failure, unspecified with hypoxia; I50.9 Heart failure, unspecified; E11.9 Type 2 diabetes mellitus without complications; I95.9 Hypotension, unspecified; Y90.6 Blood alcohol level of 120-199 mg/100 ml; I48.0 Paroxysmal atrial fibrillation; E78.5 Hyperlipidemia, unspecified; F17.210 Nicotine dependence, cigarettes, uncomplicated; E27.8 Other specified disorders of adrenal gland; I50.810 Right heart failure, unspecified; R00.8 Other abnormalities of heart beat; I27.20 Pulmonary hypertension, unspecified; F10.229 Alcohol dependence with intoxication, unspecified; G47.33 Obstructive sleep apnea (adult) (pediatric); R40.2412 Glasgow coma scale score 13-15, at arrival to emergency department; Z79.01 Long term (current) use of anticoagulants; Z99.81 Dependence on supplemental oxygen; Z85.828 Personal history of other malignant neoplasm of skin; Z83.6 Family history of other diseases of the respiratory system; Z82.49 Family history of ischemic heart disease and other diseases of the circulatory system; Z83.49 Family history of other endocrine, nutritional and metabolic diseases; Z71.6 Tobacco abuse counseling
CPT/HCPCS: 36415; 36600; 70450; 71275; 80048; 80053; 80320; 81003; 81015; 82803; 83036; 83605; 83735; 83880; 84443; 84484; 85025; 86618; 87077; 87086; 87186; 87641; 93005; 93306; 94640; 94660; 94762; 99285; 99406; A9270-GY; C8929; G0480; J0456; J2930; J3475; J3480; J7512; Q9967